=== PATIENT | female | born 1955 | race Caucasian/White ===

== ENCOUNTER 2019-07-30 16:22 | Emergency (ER) | payer MEDICARE, SELFPAY ==
[2019-07-30 16:35] VITALS: BP 140/82; PULSE 110; RESP 16; TEMP 37.6; O2SAT 96
--- NOTE | 2019-07-30 17:12 | ED.GENADULT ---
HPI - General Adult General Chief complaint: Upper Respiratory Infection Stated complaint: Congestion/Cough/left eye watery History of Present Illness HPI narrative: Patient is a 63-year-old female presents to urgent care via POV for evaluation of allergies that began at approximately 2 PM this afternoon. She reports watery eyes and rhinorrhea. Denies taking OTC meds for symptoms symptoms improve when laying flat. Denies aggravating factors. Denies fever, chills, sweats, malaise, change in appetite, poor p.o. intake, recent weight loss, severe persistent headache, LOC, dizziness, lymphadenopathy, vision changes, ear pain/drainage, nasal congestion, sinus pain, sinus pressure, difficulty swallowing, hoarseness, sore throat, abdominal pain, nausea, vomiting, diarrhea, cough, shortness of breath, chest pain, heart palpitations/murmurs. Related Data Home Medications Medication Instructions Recorded Confirmed levothyroxine 137 mcg PO DAILY 07/30/19 07/30/19 metoprolol tartrate [Lopressor] 25 mg PO DAILY 07/30/19 07/30/19 Allergies Allergy/AdvReac Type Severity Reaction Status Date / Time codeine Allergy Unknown Swelling Verified 07/30/19 16:51 ibuprofen Allergy Unknown Swelling Verified 07/30/19 16:51 morphine Allergy Unknown Unknown Verified 07/30/19 16:51 acetaminophen [From Tylenol] Allergy Swelling Verified 07/30/19 16:51 Review of Systems Review of Systems: Narrative: All other systems reviewed and are negative PMFSH Family History Family History Father Family history of chronic obstructive pulmonary disease Sibling Family history of throat cancer Social History Social History Smoking status: Former smoker Smoking end date: 05/13/04 Alcohol intake: current Gender identity (if verbalized by the patient): Female Comments I have reviewed and agree with the patient's past medical, surgical, social, and family hx as documented by the RN. There is no relevant family history pertinent to the presenting complaint. Exam Narrative: Exam Narrative: GENERAL: Well-appearing, well-nourished, and in no acute distress. HEAD: Normocephalic, atraumatic. No sinus tenderness or facial swelling appreciated EYES: PERRLA and EOMI. No evidence of erythema, swelling, or drainage. ENT: Bilateral external ears and ear canals normal. Bilateral TMs are normal.No TM perforation. Nares clear, no epistaxis. Scant amount of rhinorrhea noted to bilateral naris. Bilateral turbinates without erythema/ swelling. Mucous membranes moist and pink. Uvula is midline without erythema and swelling. No evidence of petechial rash, cobblestoning, lesions, ulcers, erythema, swelling, exudates, peritonsillar abscess, tenting, or drooling. Breath odor and voice normal. NECK: Supple. No Lymphadenopathy or nuchal rigidity appreciated. CHEST: Bilateral lung romero are clear to auscultation. No respiratory distress. No evidence of cough or pleuritic cp upon examination. HEART: Regular rate and rhythm. No murmur, gallop, or rub heard. EXTREMITIES: Normal range of motion. No edema. SKIN: Warm, dry, no rash. NEURO: No focal deficits. Alert and oriented x3. Course Vital Signs Vital signs: Vital Signs Temperature 99.7 F H 07/30/19 16:35 Pulse Rate 110 H 07/30/19 16:35 Respiratory Rate 16 07/30/19 16:35 Blood Pressure 140/82 07/30/19 16:35 Pulse Oximetry 96 07/30/19 16:35 Temperature 99.7 F H 07/30/19 16:35 Pulse Rate 110 H 07/30/19 16:35 Respiratory Rate 16 07/30/19 16:35 Blood Pressure 140/82 07/30/19 16:35 Pulse Oximetry 96 07/30/19 16:35 Medical Decision Making Differential Diagnosis Differential Diagnosis: Allergic rhinitis, ABRS, acute viral sinusitis, strep pharyngitis, nasopharyngitis, bronchitis, pneumonia, AOM, otitis externa, viral URI, influenza Vital Signs Vital Signs: Vital
== END 2019-07-30 17:18 | disposition home or self-care (01) ==
PROVIDERS: Emergency Provider Nurse Practitioner Family; PCP Emergency Medicine
DX: J30.9 Allergic rhinitis, unspecified (principal); Z87.891 Personal history of nicotine dependence
CPT/HCPCS: 99211; G0463

== ENCOUNTER 2019-12-14 18:57 | Emergency (ER) | payer MEDICARE, SELFPAY ==
--- NOTE | ~2019-12-14 | XR_ITS ---
EXAMINATION: XR chest 1V portable EXAM DATE: 12/14/2019 19:48 INDICATION: Intermittent cough for 3 days. Nausea and vomiting. TECHNIQUE: Portable AP frontal chest x-ray was obtained. Comparison is made to prior examination from 10/17/2018. FINDINGS: There has been interval development of severely elevated left hemidiaphragm, could indicate hemidiaphragm paralysis. Consider pulmonary consult, follow-up nonemergent sniff test. There is paula cent atelectasis. The lungs are otherwise clear. There are no pleural effusions. The The cardiomedi astinal silhouette is prominent but magnified on this AP technique. There is no pneumothorax suspe cted. The bones and soft tissues are unremarkable. IMPRESSION: 1. Interval development of severely elevated left hemidiaphragm, possible paralysis. Consider pulmon symone consult, follow-up nonemergent sniff test. 2. No acute cardiopulmonary findings. Reviewed, dictated and finalized at location A. IMPRESSION: 1. Interval development of severely elevated left hemidiaphragm, possible paral ysis. Consider pulmonary consult, follow-up nonemergent sniff test. 2. No acute cardiopulmonary findings.
[2019-12-14 19:11] VITALS: BP 132/70; PULSE 90; RESP 14; TEMP 37.2; O2SAT 96
[2019-12-14 20:06] LABS: Basophils Percent Auto 0.5 % (0.2-1.2); Eosinophils Absolute Auto 0.1 K/mm3 (0-0.3); Eosinophils Percent Auto 1.5 % (0-4.4); Hematocrit 44.2 % (37.0-47.0); Hemoglobin 14.7 g/dL (12.0-15.0); Immature Granulocyte Absolute 0.01 K/mm3 (0.00-0.031); Immature Granulocyte Percent A 0.2 % (0-0.5); Lymphocytes Absolute Auto 1.77 K/mm3 (0.9-3.2); Lymphocytes Percent Auto 43.2 % (18.3-44.2); Mean Corpuscular HGB Conc 33.3 g/dl (32-36); Mean Corpuscular Hemoglobin 30.5 pg (26-34); Mean Corpuscular Volume 91.7 fl (80-100); Mean Platelet Volume 10.5 fl (7.4-10.4); Monocytes Absolute Auto 0.7 K/mm3 (0.1-0.6); Neutrophils Absolute Auto 1.5 K/mm3 (1.3-6.7); Neutrophils Percent Auto 36.6 % (45.5-73.1); Platelet Count Result 217 k/mm3 (150-375); Red Blood Count 4.82 M/mm3 (4.2-5.4); Red Cell Distribution Width 13.3 % (11.5-14.5); White Blood Count 4.1 K/mm3 (4.5-10.0)
[2019-12-14 20:18] LABS: Alanine Aminotransferase 13 U/L (4-35); Albumin Level 4.1 g/dL (3.5-5.1); Alkaline Phosphatase 60 U/L (38-126); Anion Gap 8.8 mmol/L (7-16); Aspartate Amino Transferase 25 U/L (14-36); Bilirubin,Total 0.4 mg/dL (0.2-1.3); Blood Urea Nitrogen 12 mg/dL (7-17); Calcium 8.5 mg/dL (8.4-10.2); Carbon Dioxide 29 mmol/L (22-30); Chloride 103 mmol/L (98-107); Estimated CRCL calculation 93 ml/min; Estimated Glomerular Filt Rate > 60; Glucose 94 mg/dL (65-105); Lipase 125 U/L (23-300); Potassium 3.8 mmol/L (3.4-5.0); Sodium 137 mmol/L (137-145)
[2019-12-14 20:24] LABS: Add Urine Microscopic? YES; Appearance Urine Cloudy (Clear); Bacteria Urine Trace /hpf; Bilirubin Urine Negative (Negative); Blood Urine 1+ (Negative); Color Urine Yellow (Yellow); Glucose Urine UA Negative (Negative); Ketones Urine Negative (Negative); Leukocyte Esterase Ur 2+ LEU/UL (Negative); Mucus Urine Heavy /lpf; Nitrate Urine Negative (Negative); Protein Urine 1+ mg/dL (Negative); RBC Urine 21-50 /hpf (0-2); Squamous Epithelial Cell Urine Many /hpf (Few); WBC Urine 16-20 /hpf
--- NOTE | 2019-12-14 20:52 | ED.NAVMDI ---
HPI - Nausea/Vomiting/Diarrhea General Chief complaint: Nausea/Vomiting/Diarrhea Stated complaint: N/V DIZZINESS, PMD REQUESTS TEST FOR COVID AND FLU Time Seen by Provider: 12/14/19 19:20 Source: patient Mode of arrival: ambulatory Limitations: no limitations History of Present Illness HPI Narrative: Patient presents for evaluation 4-5 episodes of vomiting mild nausea and intermittent occasional dry cough that began on Saturday. 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 Patient denies abdominal pain or diarrhea. Patient states that she had a normal bowel movement over the weekend without any blood or mucus. Patient denies any blood in her vomit. Patient denies any urinary symptoms. Patient denies past abdominal issues or any known food or drinks that could have caused her symptoms. Related Data Home Medications Medication Instructions Recorded Confirmed levothyroxine 137 mcg PO DAILY 07/30/19 07/30/19 metoprolol tartrate [Lopressor] 25 mg PO DAILY 07/30/19 07/30/19 Allergies Allergy/AdvReac Type Severity Reaction Status Date / Time codeine Allergy Unknown Swelling Verified 07/30/19 16:51 ibuprofen Allergy Unknown Swelling Verified 07/30/19 16:51 morphine Allergy Unknown Unknown Verified 07/30/19 16:51 acetaminophen [From Tylenol] Allergy Swelling Verified 07/30/19 16:51 Review of Systems Review of Systems: Narrative: CONSTITUTIONAL: Denies fever, chills, or sweats. EYES: Denies visual changes, redness, or discharge. ENT: Denies sore throat CARDIOVASCULAR: Denies chest pain, palpitations, or edema. RESPIRATORY: Reports intermittent cough denies dyspnea. GASTROINTESTINAL: Reports nausea vomiting denies abdominal pain, or diarrhea. GENITOURINARY: Denies dysuria or hematuria. SKIN: Denies rash or itching. MUSCULOSKELETAL: Denies back pain, joint pain, or myalgia. NEUROLOGIC: Denies headache, numbness, dizziness, or weakness. PMFSH Social History Social History Smoking status: Former smoker Smoking end date: 05/13/04 Alcohol intake: current Gender identity (if verbalized by the patient): Female Exam Narrative: Exam Narrative: GENERAL: Well-appearing, well-nourished, and in no acute distress or discomfort. HEAD: Normocephalic, atraumatic. EYES: PERRLA and EOMI. ENT: Nares clear, no rhinorrhea or epistaxis. Mucous membranes moist. Oropharynx without tonsillar hypertrophy exudate or other lesions. Bilateral TMs pearly patino nonbulging NECK: Supple. No adenopathy or masses. CHEST: Clear to auscultation. No respiratory distress. No wheezes rales or rhonchi HEART: Regular rate and rhythm. ABDOMEN: Soft, nontender with palpation, nondistended, normal active bowel sounds. EXTREMITIES: Normal range of motion. No edema. SKIN: Warm, dry, no rash. NEURO: No focal deficits. Alert and oriented x3. PSYCH: Normal mood and affect. Course Vital Signs Vital signs: Vital Signs Temperature 98.9 F 12/14/19 19:11 Pulse Rate 90 12/14/19 19:11 Respiratory Rate 14 12/14/19 19:11 Blood Pressure 132/70 12/14/19 19:11 Pulse Oximetry 96 12/14/19 19:11 Temperature 98.9 F 12/14/19 19:11 Pulse Rate 76 12/14/19 21:34 Respiratory Rate 18 12/14/19 21:34 Blood Pressure 132/78 12/14/19 21:34 Pulse Oximetry 99 12/14/19 21:34 MDM - Nausea/Vomiting/Diarrhea MDM Narrative Medical decision making narrative: Patient is in no acute distress or discomfort during her ER visit. Her vital signs have been stable. 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 Patient will be treated for UTI and instructed to follow-up with her primary care for reevaluation as well as to further evaluate incidental chest x-ray finding of possibly paralyzed and elevated hemidiaphragm. Patient is in agreement with discharge and denies any questions or concerns at this time. Differential Diagnosis
[2019-12-14 21:34] VITALS: BP 132/78; PULSE 76; RESP 18; O2SAT 99
[2019-12-15 15:08] LABS: SARS-CoV-2 RNA PCR Positive
== END 2019-12-14 21:36 | disposition home or self-care (01) ==
PROVIDERS: Physician Assistant; Emergency Provider Emergency Medicine; PCP Emergency Medicine
DX: U07.1 COVID-19 (principal); N39.0 Urinary tract infection, site not specified; Z87.891 Personal history of nicotine dependence; R91.8 Other nonspecific abnormal finding of lung field
CPT/HCPCS: 36415; 71045; 80053; 81001; 83690; 85025; 87086; 87635; 99283; C9803; U0003

== ENCOUNTER 2020-05-03 09:56 | Outpatient (CLI) | payer MEDICARE, SELFPAY ==
--- NOTE | ~2020-05-03 | CT_ITS ---
EXAMINATION: CT chest wo con EXAM DATE: 05/03/2020 10:17 INDICATION: J98.6 - Disorders of diaphragm. Left-sided chest pain. TECHNIQUE: Spiral CT of the chest without contrast. Axial, coronal and sagittal images were reviewe d. Coronal maximum intensity pixel images of chest reviewed. The dose-length product (DLP) for this examination was 255.81 mGy-cm. The exposure was tailored according to patient size (auto mA exposur e control), and iterative reconstruction (ASIR) was used as additional dose reduction technique. Edmundo elation is made to chest x-ray 12/14/2019. FINDINGS: There is elevated left hemidiaphragm with multisegmental left lower lobe atelectasis. This could indicate hemidiaphragm paralysis. Subsegmental lingular, right middle lobe atelectasis. No ev idence of acute infection. Tracheobronchial tree is patent. There is no mediastinal, hilar or axil yaima lymphadenopathy. There is no pneumothorax. Heart normal in size. No evidence of coronary a rterial calcification. There are 3 exophytic left renal, probably cysts There is mild thoracic spon dylosis without osteoblastic or osteolytic lesions identified. IMPRESSION: Chronic left hemidiaphragm elevation, adjacent atelectasis. Possible TX paralysis. Consid er sniff test. Reviewed, dictated and finalized at location B. 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 Possibl e TX paralysis. Consider sniff test.
== END 2020-05-03 09:57 | disposition home or self-care (01) ==
PROVIDERS: PCP Emergency Medicine; Visit Provider Internal Medicine Critical Care Medicine
DX: J98.6 Disorders of diaphragm (principal); R91.8 Other nonspecific abnormal finding of lung field; J98.11 Atelectasis
CPT/HCPCS: 71250

== ENCOUNTER 2020-07-29 07:54 | Outpatient (CLI) | payer MEDICARE, MEDICAID, SELFPAY ==
[2020-07-29 08:47] LABS: Alveolar/Arterial O2 Gradient 17.1 mmHg; Base Excess ABG 0.7 mEq/l (+/-2.0); Fractional Inspired Oxygen 21 %; HCO3 ABG 25.2 mEq/l (22.0-26.0); Oxygen Content ABG 19.7 %vol (16.0-22.0); Oxygen Saturation ABG 96.5 % (95.0-100.0); Oxyhemoglobin 95.8 % THb (90.0-100.0); PO2 ABG 84.7 mmHg (80.0-100.0); PO2 FiO2 Ratio Arterial Blood 4.03 %; Total Hemoglobin 14.6 g/dL (12.0-18.0); pH ABG 7.417 (7.350-7.450)
[2020-07-29 08:48] LABS: Device ROOM AIR; Modified Allen's Test Pass; Site Drawn RIGHT RADIAL
--- NOTE | 2020-07-29 15:14 | WPDSIXMINUTE ---
Six Minute Walk This is a 6 minutes walk test. The test was performed and interpreted in accordance with the 2014 ERS/ATS task force guidelines. Findings: The patient's resting room air oxygen saturation measured by pulse oximetry was 94% and her heart rate was 72 bpm. Patient ambulated for 335 meters and oxygen saturation remained 92% to 96%. Heart rate at the end of the study was 99 bpm. There are no prior studies for comparison.
--- NOTE | 2020-07-29 15:15 | WPDPFTINT ---
PFT Interpretation This is a pulmonary function test with pre and post-bronchodilator spirometry, plethysmography,diffusing capacity, maximal inspiratory and expiratory force and arterial blood gas. The test was performed and results interpreted in accordance with the 2019 and 2005 ATS/ERS Task Force guidelines respectively using the Global Lung Function Initiative-2012 reference equations. Patient demonstrated good effort and cooperation. Reproducibility criteria were met. The quality of the pre bronchodilator spirometry maneuver was Grade A and post bronchodilator spirometry maneuver was Grade A. Findings: Spirometry: There is decreased maximal expiratory airflow at all lung volumes with a mildly concave expiratory flow tracing. The pre bronchodilator FVC is 2.21 L, 74% predicted. The pre bronchodilator FEV1 is 1.57 L, 67% predicted. The FEV1: FVC ratio 71%. The post bronchodilator FVC is 2.25 L, representing a 2% increase. The post bronchodilator FEV1 is 1.65 L, representing a 5% increase. Plethysmography: The total lung capacity is 3.33 L, 66% predicted. Functional residual capacity is 1.42 L, 42 44% predicted. The residual volume is 1.12 L, 52% predicted. Diffusing capacity: The absolute diffusion capacity is 17.1, 75% predicted. The diffusing capacity corrected for alveolar volume is 4.91, 118% predicted. Respiratory muscle force: The maximal inspiratory pressure is 44 cm H2O, 62% predicted. The maximal expiratory pressure is 84 cm H2O, 62% predicted ABG: The resting room air arterial blood gas shows a pH of 7.42, a PaCO2 of 40.0, a PaO2 of 84.7. Impression: There is a combined obstructive and restrictive ventilatory abnormality. There are no guidelines to assign the severity of obstruction and restriction with a combined abnormality. In my opinion, given the mildly concave expiratory flow tracing and low normal FEV1: FVC ratio and mild restrictive abnormality, I would state there is a mild obstructive abnormality and a mild restrictive abnormality resulting in a moderately decreased FEV1. There is no significant improvement after inhaling a single dose of albuterol. The diffusing capacity is normal. The maximal inspiratory pressure and maximal expiratory pressure values are both below the lower limit of normal which is defined as the 5th percentile of predicted and indicating the presence of respiratory muscle weakness. Clinical correlation is recommended. The arterial blood gas is normal. There are no prior studies for comparison
== END 2020-07-29 07:55 | disposition home or self-care (01) ==
PROVIDERS: PCP Emergency Medicine; Visit Provider Internal Medicine Critical Care Medicine
DX: I25.10 Atherosclerotic heart disease of native coronary artery without angina pectoris (principal); R06.02 Shortness of breath; J98.6 Disorders of diaphragm; R94.2 Abnormal results of pulmonary function studies
CPT/HCPCS: 36600; 82805; 94060; 94200; 94618; 94726; 94729

== ENCOUNTER 2020-08-02 11:05 | Outpatient (CLI) | payer MEDICARE, MEDICAID, SELFPAY ==
--- NOTE | ~2020-08-02 | US_ITS ---
EXAMINATION: US thyroid EXAM DATE: 08/02/2020 11:25 INDICATION: Hypothyroidism. TECHNIQUE: Multiple grayscale and Doppler images of the thyroid were obtained (by a technologist who performed the scan) and subsequently reviewed. Individual nodules and recommendations may be reporte d in accordance with TI-RADS system as designated by the 2017 ACR White Paper TI-RADS committee. Comp arison is made to prior examination from 09/04/2017. FINDINGS: The right thyroid lobe measures 5.7 x 2.7 x 1.9 cm, the left measuring 4.9 x 2.1 x 1.8 cm, mild to mo derately enlarged. There is diffusely heterogeneous thyroid echogenicity and also hypervascularity, c ould indicate Kirt's thyroiditis. Previous exam demonstrated several subcentimeter hyperechoic regions within the heterogeneous thyroid parenchyma, but these are not specifically identified on today's examination. IMPRESSION: Enlarged heterogeneous hypervascular thyroid. Clinical correlation. Reviewed, dictated and finalized at location A.
== END 2020-08-02 11:06 | disposition home or self-care (01) ==
PROVIDERS: PCP Emergency Medicine; Visit Provider Emergency Medicine
DX: E03.9 Hypothyroidism, unspecified (principal)
CPT/HCPCS: 76536

== ENCOUNTER 2020-08-30 10:18 | Outpatient (CLI) | payer MEDICARE, MEDICAID, SELFPAY ==
--- NOTE | ~2020-08-30 | XR_ITS ---
XR sniff test with CXR2V DATE: 08/30/2020 10:52 INDICATION: Elevated left diaphragm TECHNIQUE: Fluoroscopy was performed during provocative measures including significant and inspiratio n and expiration. COMPARISON: None FINDINGS: There is normal direction of excursion of both leaves of the diaphragm although there is di minished extent of excursion of the elevated left diaphragm compared to the right. IMPRESSION: Elevated left leaf of diaphragm. No evidence of perivascular motion Reviewed, dictated and finalized at Location A. Reviewed, dictated and finalized at location A.
== END 2020-08-30 10:19 | disposition home or self-care (01) ==
PROVIDERS: PCP Emergency Medicine; Visit Provider Nurse Practitioner Family
DX: J98.6 Disorders of diaphragm (principal)
CPT/HCPCS: 71046; 76000

== ENCOUNTER 2021-03-11 10:54 | Emergency (ER) | payer MEDICARE, MEDICAID, SELFPAY ==
--- NOTE | ~2021-03-11 | XR_ITS ---
EXAMINATION: XR chest 2V EXAM DATE: 03/11/2021 11:16 INDICATION: Cough for 4 days. TECHNIQUE: Frontal and lateral projections of the chest obtained and reviewed. Comparison is made to prior examination from 08/30/2020, 12/14/2019. FINDINGS: Chronic left hemidiaphragm elevation suspicious for paralysis. This was not present on x-ra y from 10/17/2018, but was present on exam from 12/14/2019. Some adjacent segmental atelectasis. The lung s are otherwise clear. There are no pleural effusions. The cardiomediastinal silhouette is within n ormal limits. There is no pneumothorax suspected. The bones and soft tissues are unremarkable. IMPRESSION: Chronic left hemidiaphragm elevation. Adjacent atelectasis. Reviewed, dictated and finalized at location A.
[2021-03-11 11:01] VITALS: BP 154/77; PULSE 87; RESP 16; TEMP 36.7; O2SAT 98
--- NOTE | 2021-03-11 11:43 | ED.URI ---
HPI - URI/Sore Throat General Chief Complaint: Upper Respiratory Infection Stated Complaint: Cough Source: patient and RN notes reviewed Limitations: no limitations History of Present Illness HPI Narrative: The patient, an ex-smoker/occasional drinker with history of Covid disease, presents with cough. Patient states she has been seen by pulm [Dr. Guevara] for history of Covid pneumonia c/b diaphragmatic paralysis 2019 . It was confirmed by CT scan and PFTs showing mild obstructive and restrictive defects with minimal improvement with inhaler. She now has a shorter half week history of slightly productive cough, myalgias with headache and occasional wheezing. No fever, CP, calf pain/edema; no loss of taste or smell, shortness of breath. Symptoms are mild, slightly worse supine/sleeping, unrelieved with prescribed meds. She reports having access to nebulizer; and , strong NSAID and codeine allergies Related Data Home Medications Medication Instructions Recorded Confirmed levothyroxine 137 mcg PO DAILY 07/30/19 03/11/21 metoprolol tartrate [Lopressor] 25 mg PO DAILY 07/30/19 03/11/21 ergocalciferol (vitamin D2) 50,000 50,000 unit PO DAILY 04/26/20 03/11/21 unit tablet simvastatin 40 mg tablet 40 mg PO DAILY 04/26/20 03/11/21 Allergies Allergy/AdvReac Type Severity Reaction Status Date / Time codeine Allergy Unknown Swelling Verified 03/11/21 11:14 ibuprofen Allergy Unknown Swelling Verified 03/11/21 11:14 morphine Allergy Unknown Unknown Verified 03/11/21 11:14 acetaminophen [From Tylenol] Allergy Swelling Verified 03/11/21 11:14 Review of Systems Review of Systems: General/Constitutional: No weight loss,fever Eyes: N0: Redness,discharge Ears/Nose/Throat: No: Epistaxis,ear discharge Respiratory: Denies: Hemoptysis Gastrointestinal: No Vomiting, Bleeding-rectal Skin: No Lumps, eruption Neurologic: No Focal Weakness,Sz Hematologic: Denies: Petechiae/Purpura Psychiatric: No: Suicida ideationl All Other Systems: Reviewed and Negative [facility] Past Medical History Medical History Coronary artery disease Diaphragm paralysis Family History Family History Father Family history of chronic obstructive pulmonary disease Sibling Family history of throat cancer Social History Social History Smoking status: Former smoker Smoking end date: 05/13/04 Alcohol intake: current Gender identity (if verbalized by the patient): Female Comments At time of signature, agree with nursing past medical, surgical, social and family history. There is no relevant family history pertinent to the presenting complaint Exam Narrative: General Appearance: Well appearing, Well nourished EYE: PERRLA, Conjunctiva clear Ears: Auditory canal normal, TM normal Nose: Rhinorrhea, Mucousal erythema Mouth/Throat: MM moist, Uvula midline, Pharyngeal erythema Neck: Supple, No adenopathy Respiratory: No respiratory distress, increased AP diameter, decreased BS left >right,eswp at bases Cardiovascular: RRR, No JVD Musculoskeletal: Non tender, Normal strength Skin: Warm, Dry Neurological: A&O x3, CN II-XII intact Psychiatric: Normal mood, Normal affect Course Course Emergency Course: Films visualized, interpreted by radiologist, agree, chronic ABnormal see report Vital Signs Vital signs: Vital Signs Temperature 98.1 F 03/11/21 11:01 Pulse Rate 87 03/11/21 11:01 Respiratory Rate 16 03/11/21 11:01 Blood Pressure 154/77 H 03/11/21 11:01 Pulse Oximetry 98 03/11/21 11:01 Temperature 98.1 F 03/11/21 11:01 Pulse Rate 87 03/11/21 11:01 Respiratory Rate 16 03/11/21 11:01 Blood Pressure 154/77 H 03/11/21 11:01 Pulse Oximetry 98 03/11/21 11:01 MDM - URI/Sore Throat Lab Data Labs: Lab Results 03/11/21 Range/Units 11:10 POC SARS CoV-2
== END 2021-03-11 12:10 | disposition home or self-care (01) ==
PROVIDERS: Emergency Provider Emergency Medicine; PCP Emergency Medicine
DX: R05.9 Cough, unspecified (principal); R94.31 Abnormal electrocardiogram [ECG] [EKG]; Z20.822 Contact with and (suspected) exposure to COVID-19; Z87.891 Personal history of nicotine dependence; I25.10 Atherosclerotic heart disease of native coronary artery without angina pectoris; Z86.16 Personal history of COVID-19
CPT/HCPCS: 71046; 87426; 99213; C9803; G0463

== ENCOUNTER → 2022-03-26 11:01 | Outpatient (CLI) | payer MEDICARE, MEDICAID, SELFPAY ==
--- NOTE | ~2022-03-26 | XR_ITS ---
XR chest 2V DATE: 03/26/2022 11:25 INDICATION: Nonproductive cough for 2 days. Nonsmoker. TECHNIQUE: 2 views COMPARISON: 03/11/2021 2 view chest FINDINGS: There is chronic prominent elevation of left diaphragm. There is associated mild atelectasi s at the left lung base. The lungs otherwise appear clear. Heart size appears borderline or enlarged. No hilar or mediastinal enlargement is evident. No pleural effusion or pulmonary vascular congestion or pneumothorax is detected. Osteopenia. IMPRESSION: Chronic prominent elevation of left diaphragm with minimal atelectasis at left lung base Borderline or increased heart size No significant change since 03/11/2021 Reviewed, dictated and finalized at location A. [employer]NAL[employer] IMPRESSION: Chronic prominent elevation of left diaphragm with minimal atelecta sis at left lung base Borderline or increased heart size No significant change since 03/11/2021
== END ==
PROVIDERS: PCP Emergency Medicine; Visit Provider Emergency Medicine
DX: R05.9 Cough, unspecified (principal); R91.8 Other nonspecific abnormal finding of lung field
CPT/HCPCS: 71046

== ENCOUNTER 2022-03-31 21:01 | Emergency (ER) | payer MEDICARE, MEDICAID, SELFPAY ==
--- NOTE | ~2022-03-31 | XR_ITS ---
EXAMINATION: XR chest 2V DATE: 03/31/2022 21:32 INDICATION: Cough and left-sided chest pain. TECHNIQUE: PA and lateral views of the chest were obtained. COMPARISON: Chest radiograph dated 03/26/2022 FINDINGS: Elevation the left hemidiaphragm. Increased opacities along the left lung base. No pulmonary edema, p leural effusion or pneumothorax. Cardiomegaly. Mild anterior wedging of several lower thoracic verteb ral bodies. IMPRESSION: 1. Interval increase in opacities along the elevated left hemidiaphragm which could represent atelect asis and/or pneumonia. Reviewed, dictated and finalized at location A. ESS CONSULTANT IMPRESSION: 1. Interval increase in opacities along the elevated left hemidiaphragm which c ould represent atelectasis and/or pneumonia.
--- NOTE | 2022-03-31 21:20 | ED.URI ---
HPI - URI/Sore Throat General Chief Complaint: Unspecified Stated Complaint: Possible fractured rib Time Seen by Provider: 03/31/22 21:02 History of Present Illness HPI Narrative: 66-year-old female history of coronary artery disease presents emergency room for complaints of left-sided chest wall pain. Patient states that she has been coughing for a week, was seen by her PCP and completed a course of Z-Beto. Patient states that she has not shown any improvement with her symptoms. Has been taking [place] cough medicine with no relief. Patient denies shortness of breath, difficulty breathing or chest pain. Patient states I think I broke a rib . Related Data Home Medications Medication Instructions Recorded Confirmed levothyroxine 137 mcg tablet 137 mcg PO DAILY 07/30/19 03/11/21 metoprolol tartrate 50 mg tablet 25 mg PO DAILY 07/30/19 03/11/21 (Lopressor) ergocalciferol (vitamin D2) 50,000 50,000 unit PO DAILY 04/26/20 03/11/21 unit tablet simvastatin 40 mg tablet 40 mg PO DAILY 04/26/20 03/11/21 Allergies Allergy/AdvReac Type Severity Reaction Status Date / Time codeine Allergy Unknown Swelling Verified 05/02/21 12:49 ibuprofen Allergy Unknown Swelling Verified 05/02/21 12:49 morphine Allergy Unknown Unknown Verified 05/02/21 12:49 acetaminophen [From Tylenol] Allergy Swelling Verified 05/02/21 12:49 Review of Systems Review of Systems: CONSTITUTIONAL: Denies fever, chills, or sweats. EYES: Denies visual changes, redness, or discharge. ENT: Denies rhinorrhea, congestion, sore throat, or otalgia. CARDIOVASCULAR: Denies chest pain, palpitations, or edema. RESPIRATORY: Reports cough GASTROINTESTINAL: Denies abdominal pain, nausea, vomiting, or diarrhea. GENITOURINARY: Denies dysuria or hematuria. SKIN: Denies rash or itching. MUSCULOSKELETAL: Denies back pain, joint pain, or myalgia. NEUROLOGIC: Denies headache, numbness, dizziness, or weakness. PSYCHIATRIC: Denies anxiety or depression. [facility] Past Medical History Medical History Coronary artery disease Diaphragm paralysis Family History Family History Father Family history of chronic obstructive pulmonary disease Sibling Family history of throat cancer Social History Social History Smoking status: Former smoker (quit 2004) Smoking end date: 05/13/04 Alcohol intake: current Gender identity (if verbalized by the patient): Female Exam Narrative: GENERAL: Well-appearing, well-nourished, no physical limitations, and in no acute distress. HEAD: Normocephalic, atraumatic. EYES: Conjunctivae normal, PERRLA and EOMI. ENT: External nose normal, Nares clear, no rhinorrhea or epistaxis. Mucous membranes moist. Oropharynx without tonsillar hypertrophy exudate or other lesions. External ears normal, bilateral TMs normal bilaterally NECK: Supple. No adenopathy or masses. CHEST: Clear to auscultation. No respiratory distress. No wheezes rales or rhonchi. Tenderness to the left lateral and left anterior chest wall HEART: Regular rate and rhythm. No murmur heard. Normal peripheral pulses. BACK: No CVA tenderness; No cervical/thoracic/lumbar tenderness, step-offs, bony abnormality; FROM EXTREMITIES: Normal range of motion. No edema. No clubbing or cyanosis SKIN: Warm, dry, no rash. No noted wounds NEURO: No focal deficits. Alert and oriented x3. MAEW. CN's II-XI intact bilaterally, normal gait PSYCH: Cooperative. Normal mood and affect. MDM - URI/Sore Throat Imaging Data My impression: CXR: LLL atelectasis, No cardiopulmonary abnormality, No rib fracture Discharge Plan Discharge Clinical Impression: Cough, Acute chest wall pain Patient Disposition: Home, Self-Care Condition: Stable Instructions: Antibiotic Form, Upper Respiratory Infection (ED), Viral Syndrome (ED), Chest Wall
[2022-03-31 22:47] VITALS: BP 158/84; PULSE 94; RESP 16; O2SAT 97
== END 2022-03-31 22:50 | disposition home or self-care (01) ==
PROVIDERS: Emergency Provider Nurse Practitioner Family; PCP Emergency Medicine
DX: R07.89 Other chest pain (principal); R05.9 Cough, unspecified; J98.6 Disorders of diaphragm; I25.10 Atherosclerotic heart disease of native coronary artery without angina pectoris; Z87.891 Personal history of nicotine dependence
CPT/HCPCS: 71046; 99283

== ENCOUNTER → 2022-04-25 10:46 | Outpatient (CLI) | payer MEDICARE, MEDICAID, SELFPAY ==
--- NOTE | ~2022-04-25 | XR_ITS ---
Clinical Indication: Cough, smoking history PA and lateral views of the chest: Comparison: 03/31/2022 Findings: The lungs are clear, without evidence of focal consolidation or pleural effusion. Stable el evation left hemidiaphragm. Cardiomediastinal silhouette is within normal limits. Bones and soft tiss ues are unremarkable. Impression: No acute abnormality. Stable elevation left hemidiaphragm. Reviewed, dictated and finalized at location [] T RAIL OPERATOR Impression: No acute abnormality. Stable elevation left hemidiaphragm.
== END ==
PROVIDERS: PCP Emergency Medicine; Visit Provider Emergency Medicine
DX: R05.9 Cough, unspecified (principal); J18.9 Pneumonia, unspecified organism
CPT/HCPCS: 71046

== ENCOUNTER → 2022-06-14 13:23 | Outpatient (CLI) | payer MEDICARE, MEDICAID, SELFPAY ==
--- NOTE | ~2022-06-14 | XR_ITS ---
EXAMINATION: XR chest 2V DATE: 06/14/2022 13:41 INDICATION: Cough TECHNIQUE: PA and lateral views of the chest are obtained. COMPARISON: 04/25/2020 FINDINGS: There is unchanged elevation of the left hemidiaphragm with passive atelectasis in the left lung base. No acute airspace opacities are identified. No pleural effusion or pneumothorax. The card iomediastinal silhouette is normal. There is moderate thoracic spondylosis. IMPRESSION: 1. No acute cardiopulmonary abnormality. Reviewed, dictated and finalized at location L. E DELIVERY SERVICE DRIVER
== END ==
PROVIDERS: PCP Emergency Medicine; Visit Provider Emergency Medicine
DX: R05.9 Cough, unspecified (principal)
CPT/HCPCS: 71046

== ENCOUNTER 2023-12-31 10:00 | Outpatient (RCR) | payer MEDICARE, MEDICAID, SELFPAY ==
--- NOTE | 2023-11-25 15:44 | OPREHPOC ---
Outpatient Therapy Plan of Care This is a Multidisciplinary Plan of Care that may contain components documented by all disciplines (PT, OT, and ST.) PT Problem 1 PT Problem #1 Knowledge Deficit PT Goal [address] [place] with HEP Target Visit 4 PT Goal 2 Goal Report no pain with lifting of 5# to shoulder level Target Visit 8 PT Problem 2 PT Problem #2 Impaired Range of Motion PT Goal 1 Goal Achieve 165 degrees of active R shoulder flexion for improved functional reach Target Visit 8 PT Goal 2 Goal Achieve 80 degrees of R shoulder external rotation for improved self care Target Visit 8 PT Problem 3 PT Problem #3 Impaired Strength PT Goal 1 Goal Improve R shoulder flexion to 4+/5 to improve object lifting and ADL performance Target Visit 8 PT Goal 2 Goal Improve R shoulder external rotation strength to 4 +/5 to improve shoulder stability and reach Target Visit 8
--- NOTE | 2023-11-25 15:44 | PTOPEVAL1 ---
Assessment and note entered by Noel Silver, PT Evaluation Information Assessment Status Evaluation ICD-10 Condition Codes (PT) M25.511 Onset 10/15/23 Subjective Information Reports that she fell at work resulting in dislocation of her shoulder. Reports that she is still having a lot of pain and has difficulty with raising her arm up a lot of time. She has been sleeping in her recliner since the incident and that is the only place that she is comfortable. She is right handed. She will occasionally have pain/numbness/and tingling in her fingertips but is short lived. Denies any neck pain or headaches. Reported Pain Level Pain Score 2: Self Report Assessment PT Clinical Summary Patient presents with signs and symptoms of shoulder weakness, loss of functional ROM, and increased pain with self care. Patient will benefit form skilled therapy to address these deficits for gross improvement of home ADLs and pain free range equivalent to non involved non dominant side. Plan of Care Interventions Hot Pack/Cold Pack,Manual Therapy,Neuro Re- education,Therapeutic Activities,Therapeutic Exercise PT Services Indicated Yes Treatment Frequency and 2x/week for 8 visits Duration These treatments will address the objective and functional deficits as defined above. The patient will be advanced safely and appropriately in order for the patient to progress towards his/her prior level of function. Additional exercises will be introduced and as well as a comprehensive home exercise program upon discharge, if needed, ?to ensure carryover of functional gains achieved in the clinic. This treatment plan has been reviewed and agreement upon by the patient.
--- NOTE | 2023-12-17 10:19 | PCPTNOTE ---
Patient was a No Show/No Call for today's appointment
[2023-12-31 09:55] VITALS: BP_SYST 140
--- NOTE | 2023-12-31 10:46 | PTOPDC ---
Assessment and note entered by Melissa Acevedo, PT Discharge Report Assessment Status Discharge ICD-10 Condition Codes (PT) M25.511 Onset 10/15/23 Subjective Information shoulder is better- pain is less and using it more doing the exercises; is not able to do heavy things yet, son helps with the heavy lifting; is doing everything else; have returned to work-- doing OK, but not helping move pt; sleep in the recliner or the bed--where ever she falls asleep; ready to be finished with therapy; Reported Pain Level Pain Score Self Report Additional Pain Score Comments pain range in the past week of 0-4/10; decrease pain: hot shower, muscle cream, heating pad, take aleve PRN increase pain: picking something up; is able to lie on her R shoulder for sleeping; Assessment PT Clinical Summary Selina has received 6 PT sessions. Compared to the initial evaluation: increase in R shoulder ROM and strength, with increased activity level and return to work; Self assessment Quick DASH from 32 to 11% limitation in activity level; pain decreased from 2-9/10 to 0- 4/10; education completed for HEP and pain control The goals were achieved. Discharge PT services. She is to continue with her HEP. Plan of Care PT Services Indicated No
== END 2023-12-31 13:55 | disposition home or self-care (01) ==
LOC: ANHPT 10:00
PROVIDERS: PCP Emergency Medicine; Visit Provider Physician Assistant
DX: M25.511 Pain in right shoulder (principal)
CPT/HCPCS: 97110; 97140; 97161; 97530

== ENCOUNTER 2024-10-28 08:22 | Outpatient (CLI) | payer MEDICARE, MEDICAID, SELFPAY ==
--- OUTSIDE RECORDS SUMMARY | 2024-10-27 12:03 | XMS_ITS | Data Portability ---
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 Plan of Treatment Reminders Order Date Submit Date Provider Last Modified By Organization Details Last Modified Time Details Appointments None recorded. Lab None recorded. Referral None recorded. Procedures None recorded. Surgeries None recorded. Imaging None recorded. Medication Orders Toprol XL 25 mg tablet,ex tended release [id number] [employer] [facility] [place], [address], 9 19:32:43 Toprol XL 25 mg tablet,ex tended release [id number] [id number] [employer] [address] [place] [address] [address] [place], [address], 9 19:32:43 Patient TargetsNo targets recorded. Patient Instructions Encounter Date Encounter Id Patient Instructions Last Modified By Organization Details Last Modified Time 12/16/2018 [id number] Scribed by Lizeth marquis Not available 12/16/2018 10:48:08 01/30/2019 [id number] Weight loss, 20 pounds Exercise advised Low cholesterol diet advised Low sodium diet advised. [email or web address] Not available 01/30/2019 11:03:58 scribed by nisha de paz RN; doctor examined and seen patient simutaniously and agreed. [email or web address] Not available 01/30/2019 10:56:02 Reason for Referral None Reported. Results Created Date Observation Date Name Description Value Unit Range Abnormal Flag Note LastModifiedBy Organization Detail LastModifiedTime 01/17/20 19 01/02/2019 iain r monit or No observ ation record ed. [email or web address] Not Available 2018 13:00:18 01/17/20 19 12/15/2018 pk cummings am No observ ation record ed. [email or web address] Not Available 2018 17:28:29 01/28/20 19 01/02/2019 dobut amine myoca rdial perfu patrice study (PROC ) No observ ation record ed. [email or web address] Not Available 2018 12:36:31 Result Notes None recorded. Problems Name Problem SNOMED Code Status Onset Date Resolution Date Notes Provider Name and Address Organization Details Recorded Time Snoring 80595999 Active 2018 Carie Marleyr null, [place] [facility] 9 10:13:24 Nasal congestion 56906046 Active 2018 Carie Marleyr null, [place] [facility] 9 10:13:36 Fatigue 27973812 Active 2018 Carie Marleyr null, [place] - [facility] 9 10:13:41 Gastroesophage al reflux disease 731602636 Active 2018 Carie Marleyr null, [place] - [facility] 9 10:13:53 Nocturia 591797815 Active 2018 Carie Marleyr null, [place] - [facility] 9 10:14:03 Dizziness 630121195 Active 2018 Carie Zacariasehr null, [place] - [facility] 9 10:14:10 Problem Notes None recorded. Procedures Surgical History Date Name Laterality Status Provider Name and Address Organization Details Recorded Time hysterectomy completed Carie Anderson [place] [facility] 12/16/2018 10:16:34 Imaging Results None recorded. Procedure Notes None recorded. Medical Equipment None Reported. Allergies Allergen ID Allergen Name Allergen Category Reaction Reaction Severity Criticality Documentation Date Start Date Code Code System Note Provider Name and Address Organization Details Recorded Time 8683 codeine medicatio n Not available Not available Not available 12/16/2018 2670 RxNorm Carie Marleyr null, [place] - [facility] 9 10:22:17 8684 ibuprofen medicatio n Not available Not available Not available 12/16/2018 5640 RxNorm Carie sorensen, [facility] 9 10:22:28 8685 Motrin medicatio n Not available Not available Not available 12/16/2018 56291 8 RxNorm Carie sorensen, [facility] 9 10:22:45 Medications Name Sig Start Date Stop Date Status Note LastModified by Organization Details LastModified Time amoxicillin 500 mg capsule 12/16 completed Not Available Not Available Not Available levothyroxi ne 137 mcg tablet active Not Available Not Available Not Available azithromyci n 250 mg tablet active Not Available Not Available Not Available metoprolol succinate ER 50 mg tablet,exte nded release 24 hr Take 0.5 tablets twice a day by oral route as directed. 2018 active Not Available Not Available Not Avai lable prednisone 20 mg tablet 12/16 completed Not Available Not Available Not Available simvastatin 40 mg tablet Take 1 mg every day by oral route as directed for 30 days. active Not Available Not Available No t Available levothyroxi ne 125 mcg tablet Take 1 tablet every day by oral route as directed. active Not Available Not Available No t Available nystatin 100,000 unit/gram topical cream Apply 1 applicati on twice a day by topical route as directed. active Not Available Not Available No t Available metoprolol succinate ER 25 mg tablet,exte nded release 24 hr TAKE 1 TABLET BY MOUTH ONCE DAILY active Not Available Not Available No t Available Vitamin D2 1,250 mcg (50,000 unit) capsule 12/16 completed Not Available Not Available Not Available fluticasone propionate 50 mcg/actuati on nasal spray,suspe nsion [place] 1 spray every day by nasal route as directed for 30 days. active Not Available Not Available No t Available naproxen 500 mg tablet 12/16 completed Not Available Not Available Not Available levothyroxi ne 112 mcg tablet 12/16 completed Not Available Not Available Not Available Vitamin D 400 IU QD active Not Available Not Available Not Available ProAir HFA 90 mcg/actuati on aerosol inhaler 12/16 completed Not Available Not Available Not Available Vitamin B12 Hi-Potenc y 50mcg QD active Not Available Not Available No t Available Fluzone Quad (PF) 60 mcg(15 mcgx4)/0.5 mL intramuscul ar syringe 12/16 completed Not Available Not Available Not Available Vitals Date Recorded Body weight Body mass index (BMI) Body height Heart rate Oxygen saturation Oxygen saturation in Arterial blood by Pulse oximetry Systolic blood pressure Diastolic blood pressure Provider Name and Address Organization Details Last Updated DateTime 9 409395. 2 g 39.8 kg/m2 172.72 cm 76 /min 96 % 96 % 142 mm[Hg] 94 mm[Hg] Carie [facility] 9 10:21:51 Date Recorded Body height Body mass index (BMI) Body weight Heart rate Oxygen saturation Oxygen saturation in Arterial blood by Pulse oximetry Systolic blood pressure Diastolic blood pressure Provider Name and Address Organization Details Last Updated DateTime 9 172.72 cm 40.7 kg/m2 550345. 76 g 70 /min 98 % 98 % 152 mm[Hg] 86 mm[Hg] Carie Zacariasehr [facility] 9 10:38:37 Social History Question Answer Notes LastModified by Physicians Formula Details LastModified Time Tobacco Smoking Status Former Smoker 9 yrs old Not Available [facility] 03/15/2020 03:30:41 What Is Your Level Of Caffeine Consumption? Moderate [id number] Information not available 03/15/2020 How Much Tobacco Do You Chew? None [id number] Information not available 03/15/2020 What Type Of Diet Are You Following? REGULAR [id number] Information not available 03/15/2020 Which Illicit Or Recreational Drugs Have You Used? No [id number] Information not available 03/15/2020 Live Alone Or With Others? With Others Information not available 12/16/2018 Marital Status Informatio n not available 12/16/2018 How Many Children Do You Have? 1 [id number] Information not available 03/15/2020 How Much Tobacco Do You Smoke? No [id number] Information not available 03/15/2020 Sex: Unknown Functional Status Question Answer Note LastModified by Physicians Formula Details LastModified Time What is your level of alcohol consumption? None [id number] Information not available 03/15/2020 Do you or have you ever used smokeless tobacco? Never used smokeless tobacco [id number] Information not available 03/15/2020 What is your occupation? Retired [employer] [id number] Information not available 03/15/2020 What is your exercise level? None [id number] Information not available 03/15/2020 Mental Status None recorded. Family History Relationship Description Onset Age of this Age Resolved Age Notes LastModified by Organization Details LastModified Time Paternal Grandmother Myocardial infarction [email or web address] Not available 12/16 10:14:45 Medical History No medical history recorded. Gynecological HistoryNo gynecological history recorded. Obstetrics History GPAL:G 0 P 0 0 0 0 Past Encounters Encounter ID Performer Location Encounter Start Date Encounter Closed Date Diagnosis/Indication Diagnosis SNOMED-CT Code Diagnosis ICD10 Code Diagnosis Note [id number] Mj Hillman MD [facility] [address] [place] [address] 12/16/2018 09:40:53 12/28/2018 22:30:16 Palpitations 04657499 R00.2 holter monitor Atypical chest pain 1025 48046 R07.89 Dobutamine Myoview stress test, pt can not walk. Has known coronary artery disease, with atypical symptoms now Dyslipidemia 506993888 E 78.5 Needs to keep LDL less than 70, and HDL more than 40 Will get lipid profile results from PCP [id number] Mj Hillman MD [facility] [address] [place] [address] 01/30/2019 10:11:00 01/30/2019 11:04:50 Palpitations 57821619 R00.2 still with occasional palpitatio ns but much improved Holter Monitor 01/02/19: Normal sinus rhythm. Unremarkab le holter. 1 episode of VT run. Occasional PVC's and PAC's noted. on metoprolol , will increase to bid Atypical chest pain 1025 35617 R07.89 improved sx. 01/02/19 -[place] te Stress . Normal LV systolic function. LVEF 67%. reversable defect consistent with ischemia to apical and inferior area. artifact noted Dyslipidemia 497937725 E 78.5 Needs to keep LDL less than 70, and HDL more than 40 Will get lipid profile results for F/U. continue statin Essential hypertension 94383738 I10 Not well controlled will increase Toprol to BID Health Concerns Section Related Observation LastModified by Organization Detai ls LastModified Time None Recorded Concern Status LastModified by Organization Details LastModified Time None Recorded Advance Directives Directive None Recorded Payers Insurance Date Sequence Insurance Name Policy Number Policy Santa Covered Member ID Santa Member ID Guarantor Name 11/07/2019 1 [facility] - DOS PRIOR TO 2020 (MEDICAID REPLACEMENT - HMO) Selina Craig [id number] Selina Craig Notes Date Note Type Note Provider Name and Address Organization Details Recorded Time 12/16/2018 text/html 12/16/18CC: ches t pain and palpation 63 year-old female with history of presents for cardiac consultation with a chief complaint of dizziness and palpation.she states that she has chest pain and dizziness with exertionNo shortness of breath at rest. No dyspnea on exertion. No orthopnea. No PND's. No dizziness. No syncope or near syncope. No leg swelling. No nausea and vomiting. No side effects from medications. family history mother of a cancer, and father-COPD Results from this visit, or from the past: Mj Hillman MD [address] [place], [address], [facility] 12/28/2018 22:30:15 01/30/2019 text/html 01/30/2019 CC: dizziness and palpation 63 year-old female with history of: [place] in 2016, former smoker (quit 15 years ago), hypothyroidism, HLD She presented with a chief complaint of dizziness and palpation at her initial visit and presents today for results to diagnostic testing: Holter Monitor 01/02/19: Normal sinus rhythm. Unremarkable holter. 1 episode of VT run. Occasional PVC's and PAC's noted. 01/02/19 -A[facility]ate Stress with Lexiscan. Normal LV systolic function. LVEF 67%. reversable defect consistent with ischemia to apical and inferior area. artifact noted. Blood pressure is elevated today, but this is only one reading, will keep close follow up, and consider medication change if blood pressure is still elevated next visit. She does have a BP machine at home and is advised to keep a dairy and bring to next visit. No shortness of breath at rest. No dyspnea on exertion. No orthopnea. No PND's. No more dizziness. REPORTS palpitations. No syncope or near syncope. trace leg swelling. has varicose veins but denies with them. No nausea and vomiting. No side effects from medications. she has not had any recent lab work with her PCP. will get for next visit Results from this visit, or from the past: EK12/15/18 Left anterior hemiblock. Holter Monitor 01/02/19: Normal sinus rhythm. Unremarkable holter. 1 episode of VT run. Occasional PVC's and PAC's noted. 01/02/19 -Adequate Stress with Lexiscan. Normal LV systolic function. LVEF 67%. reversable defect consistent with ischemia to apical and inferior area. artifact noted Mj Hillman MD [address] [facility], [place], [address], [facility] 01/30/2019 11:04:47 OBGyn Episode No OBEpisode recorded.
--- OUTSIDE RECORDS SUMMARY | 2024-10-27 12:03 | XMS_ITS | Referral Summary ---
Author Organization [facility] Address [address] [place] [id number] Care Team Providers Care Paste Mixer Liquid Name Role Phone Donnie Fernandes MD Primary Care Provider [phone] Allergies Active Allergy Reactions Criticality Noted Date Comments Codeine Swelling,Unknown High 02/26/2017 Hydrocodone-Ibuprofen Nausea And Vomiting Medium 07/15 Ibuprofen Nausea And Vomiting,Unknown Medium 02/27/20 17 Medications bacitracin 500 unit/gram ointment Apply topically 2 (two) times a day 120 g Active Social History Tobacco Use Types Packs/Day Years Used Date Smoking Tobacco: Never Assessed Personal Safety Answer Date Recorded Have you ever been in or are you currently in a harmful physical or emotional relationship or is someone making you feel afraid or unsafe? 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 Gender Identity Not on file Sexual Orientation Not on file Last Filed Vital Signs Vital Sign Reading Time Taken Comments Blood Pressure 160/82 10/15/2023 9:04 PM CDT Pulse 70 10/15/2023 9:04 PM CDT Temperature 36.5 C (97.7 F) 10/15/2023 9:04 PM CDT Respiratory Rate 16 10/15/2023 9:04 PM CDT Oxygen Saturation 98% 10/15/2023 9:04 PM CDT Inhaled Oxygen Concentration - - Weight 120 kg (264 lb 8.8 oz) 10/15/2023 6:01 PM CDT Height - - Body Mass Index - - Plan of Treatment Not on file Insurance MEDICARE [place] [address] [place] [address] MEDICARE Care Teams Paste Mixer Liquid Relationship Specialty Start Date End Date Donnie Fernandes MD PCP - General Emergency Medicine 06/21/22
--- OUTSIDE RECORDS SUMMARY | 2024-10-27 12:03 | XMS_ITS | Clinical Summary ---
Author Organization [facility] Address [address] [facility] [place] [address] Care Team Providers Care Odd Ticket Clerk Name Role Phone Donnie Fernandes MD Primary Care Provider [phone] Source Comments [facility],non-owned Affiliates and Associated Physician Practices is amultiple site organization consisting of ambulatory clinics and hospital sitesin [place], [place], [place] and [place]. This disclosure is being madepursuant to the Care Everywhere program and may not contain all information available regarding this patient. Last updated 18.[facility] Allergies Active Allergy Reactions Criticality Noted Date Comments Codeine Swelling High 07/15/2017 Hydrocodone-Ibuprofen Nausea and/or Vomiting Medium Ibuprofen Nausea and/or Vomiting Medium 07/15/2017 Medications * Be aware that medications may not be up to date on this document. Alwaysverify current medications with the patient. Cyanocobalamin (VITAMIN B 12) 100 MCG Take 500 mg by mouth. 07/15/2017 Active simvastatin (ZOCOR) 40 MG tablet 06/14/2017 Active levothyroxine (SYNTHROID) 88 MCG tablet 06/12/2017 Active Naproxen Sodium 220 MG Take 400 mg by mouth. 07/15/2017 Active losartan (COZAAR) 25 MG tablet 06/12/2017 Active vitamin D, ergocalciferol, (DRISDOL) 61159 UNITS capsule 400 mg. 06/12/2017 Activ e fluticasone propionate (FLONASE) 50 MCG/ACT nasal spray 06/12/2017 Active Active Problems Problem Noted Date Diagnosed Date Pain in left shoulder 07/15/2017 Family History Medical History Relation Name Comments COPD - Chronic Obstructive Pulmonary Disease Father Status: Cancer - Ovarian Mother Status: Dec eased CAD (Coronary Artery Disease) Sister Status: Relation Name Status Comments Father Mother Sister Social History Tobacco Use Types Packs/Day Years Used Date Smoking Tobacco: Former Cigarettes Q uit: 07/15/2001 Smokeless Tobacco: Never Alcohol Use Standard Drinks/Week Comments No 0 (1 standard drink = 0.6 oz pur e alcohol) Comments Unknown Sex and Gender Information Value Date Recorded Sex Assigned at Not on file Legal 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 Gender Identity Not on file Sexual Orientation Not on file Last Filed Vital Signs Vital Sign Reading Time Taken Comments Blood Pressure 183/91 07/15/2017 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 Pulse 73 07/15/2017 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 Temperature 36.6 C (97.9 F) 07/15/2017 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 Respiratory Rate - - Oxygen Saturation 99% 07/15/2017 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 Inhaled Oxygen Concentration - - Weight 115.2 kg (254 lb) 07/15/2017 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 Height 172.7 cm (5' 8) 07/15/2017 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 Body Mass Index 38.62 07/15/2017 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 Plan of Treatment Health Maintenance Due Date Last Done Comments BONE DENSITY TESTING 1954 COLOGUARD (AGES 45-75) - COL ON CA SCREENING 1954 COLON MONITORING 1954 COLONOSCOPY - COLON CA SCREENING 1954 CT COLONOGRAPHY - COLON CA SCREENING 1954 Colorectal Cancer Screening 1954 FIT - COLON CA SCREENING 1954 FLEX SIG - COLON CA SCREENING 1954 MAMMOGRAM 1954 HEPATITIS C SCREENING 12/07/1972 DTAP/TDAP/TD VACCINES (1 - Tdap) 1973 PNEUMOCOCCAL VACCINE 50+ (1 of 1 - PCV) 2004 ZOSTER VACCINE (1 of 2) 2004 COVID-19 VACCINE ( - 2023-2 5 season) 2024 DEPRESSION SCREENING 05/13/2024 INFLUENZA VACCINE (Season Ended) 2025 Respiratory Syncytial Virus (RSV) Vaccine Pt: or over 60 yrs (1 - 1-dose 75+ series) 2029 HEPATITIS B VACCINE Aged Out No longe r eligible based on patient's age to complete this topic HIB VACCINE Aged Out No longer eligi ble based on patient's age to complete this topic HPV VACCINE Aged Out No longer eligi ble based on patient's age to complete this topic MENINGOCOCCAL (Group B) VACC INE SHARED DECISION-MAKING Aged Out No longer eligibl e based on patient's age to complete this topic MENINGOCOCCAL GROUPS A/C/Y/W VACCINE Aged Out No longer eligible b ased on patient's age to complete this topic Insurance MEDICARE Care Teams Odd Ticket Clerk Relationship Specialty Start Date End Date Donnie Fernandes MD [facility] [address] [address] PCP - General 07/15/17
--- OUTSIDE RECORDS SUMMARY | 2024-10-27 12:03 | XMS_ITS | CONTINUITY OF CARE DOCUMENT ---
Author Name dima ch Address Unknown Organization [facility] Address [address] [place] [address] [address] [place] [address] Phone [phone] Care Team Providers Care Front Desk Administrator Name Role Phone Preet Dennis MD Unavailable [phone] TOÑA READ MD Unavailable [phone] TOÑA READ MD Unavailable [phone] INSURANCE PROVIDERS Payer name Policy type / Coverage type [employer] party ID [id number]
--- OUTSIDE RECORDS SUMMARY | 2024-10-27 12:03 | XMS_ITS | Data Portability ---
Author Organization ALEXAND[facility] BURTON Jame Mohamud Castaneda Address [address] [facility] [place] [address] Care Team Providers Care Cancer Program Director Name Role Phone SELINA HOGAN Primary Care Provider [phone] Assessment Encounter Date Assessment Date Assessment LastModified by Organization Details LastModified Time 06/29/2024 06/29/2024 advised f/u with pcp ama Not available 06/29/2024 13:12:49 Plan of Treatment Reminders Order Date Submit Date Provider Last Modified By Organization Details Last Modified Time Details Appointments None recorded. Lab TSH + free T4, serum 2024 025 [facility], [address], [place], [address], 5 12:14:07 cobalamin and folate panel, serum 2024 025 [facility], [address] [facility], [address], [place], [address], 5 12:14:08 vitamin D, 25-hydroxy, total, serum 2024 025 [facility], [address] [facility], [address], [place], [address], 5 12:14:09 CMP, serum or plasma 2024 025 [facility], [address], [address], [place], [address], 5 09:15:43 noninvasive colorectal cancer DNA + occult blood screening, QL, stool 2023 024 [facility] (Cologuard Orders Only), [address], [address], [place], [address], 4 22:43:00 lipid panel, serum 2023 024 [facility], [address], [address], [place], [address], 4 16:13:04 TSH + free T4, serum 2023 024 [facility], [address], [address], [place], [address], 4 16:13:03 T3, free, serum or plasma 2023 024 [facility], [facility] [address], [address], [place], [address], 4 16:13:06 thyroglobul in Ab, serum 2023 024 [facility], [address], [address], [place], [address], 4 16:13:05 thyroid peroxidase (tpo) Ab, serum 2023 024 [facility], [facility], [address], [place], [address], 4 16:13:05 TSH + free T4, serum 2023 024 [facility], [address], [address], [place], [address], 4 08:12:51 CMP, serum or plasma 2023 024 [facility], [address], [address], [place], [address], 4 09:16:45 lipid panel, serum 2023 024 [facility], [address], [address], [place], [address], 4 09:16:44 CBC w/ auto diff 2023 024 [facility], [address], [address], [place], [address], 4 09:16:46 TSH + free T4, serum 2023 024 [facility], [address], [address], [place], [address], 4 09:16:44 HbA1c (hemoglobin A1c), blood 2023 024 [facility], [address], [place], [address], 4 09:16:46 Referral physical therapist referral 2023 024 [facility] (Outpatient Physical Therapy), [address], [place], [address], 4 09:57:03 Procedures None recorded. Surgeries None recorded. Imaging DEXA, axial skeleton + vertebral fracture assessment [address] (Imaging), [address], [place], [address], 5 08:13:12 DEXA, axial skeleton + vertebral fracture assessment [address] (Imaging), [address], [place], [address], 4 09:25:08 Medication Orders lisinopril 40 mg tablet 2024 025 [facility] [place], [address], 5 09:29:32 hydrochloro thiazide 25 mg tablet 2024 025 [facility], [facility] [place], [address], 5 09:29:30 atorvastati n 20 mg tablet 2023 025 [facility], [facility] [place], [address], 5 09:20:57 lisinopril 40 mg tablet 2023 024 [facility], [facility] [place], [address], 4 12:09:38 Patient TargetsNo targets recorded. Patient Instructions Encounter Date Encounter Id Patient Instructions Last Modified By Organization Details Last Modified Time 11/07/2023 [id number] A healthy lifestyle: care instructions [email or web address] Not available 11/07/2023 11:57:09 06/29/2024 [id number] A healthy lifestyle: care instructions [email or web address] Not available 06/29/2024 13:13:28 Reason for Referral Physical Therapist Referral for Pain of right shoulder joint Referring Physician: Selina Hogan, Family Medicine, Encounter Date: 11/07/2023 Results Created Date Observation Date Name Description Value Unit Range Abnormal Flag Note LastModifiedBy Organization Detail LastModifiedTime 11/07/1911/08/2023 TSH+F REE T4 TSH 12.300 uIU/m L 0.450- 4.500 above high normal Not Available [facility] ([facility]) [address] [facility] [address], [place], [address], 11/08/2023 09:16:44 11/07/19 24 11/08/2023 TSH+F REE T4 T4,free(dire ct) 0.74 NG/dL 0.82-1 .77 below low normal Not Available [facility] ([facility]) [address] [place], [address], 11/08/2023 09:16:44 11/07/19 24 11/08/2023 LIPID PANEL WITH LDL/H DL RATIO cholesterol, total 202 mg/dL 100-19 9 above high normal Not Available [facility] ([facility]) [address] [place], [address], 11/08/2023 09:16:44 11/07/19 24 11/08/2023 LIPID PANEL WITH LDL/H DL RATIO triglyceride s 132 mg/dL 0-149 Not Available [facility] ([facility]) [address] [place], [address], 11/08/2023 09:16:44 11/07/19 24 11/08/2023 LIPID PANEL WITH LDL/H DL RATIO HDL cholesterol 43 mg/dL >39 Not Available [facility] ([facility]) [address] [place], [address], 11/08/2023 09:16:44 11/07/19 24 11/08/2023 LIPID PANEL WITH LDL/H DL RATIO VLDL cholesterol juan carlos 24 mg/dL 5-40 Not Available [facility] ([facility]) [address] [place], [address], 11/08/2023 09:16:44 11/07/19 24 11/08/2023 LIPID PANEL WITH LDL/H DL RATIO LDL chol calc ([facility]) 135 mg/dL 0-99 above high normal Not Available [facility] ([facility]) [address] [place], [address], 11/08/2023 09:16:44 11/07/19 24 11/08/2023 LIPID PANEL WITH LDL/H DL RATIO LDL/HDL ratio 3.1 ratio 0.0-3. 2 LDL/H DL Ratio Men Women 1/2 Avg.R isk 1.0 1.5 Avg.R isk 3.6 3.2 2X Avg.R isk 6.2 5.0 3X Avg.R isk 8.0 6.1 Not Available [facility] ([facility]) [address] [place], [address], 11/08/2023 09:16:44 11/07/19 24 11/08/2023 COMP. METAB OLIC PANEL (14) glucose 81 mg/dL 70-99 Not Available [facility] ([facility]) [address] [place], [address], 11/08/2023 09:16:45 11/07/19 24 11/08/2023 COMP. METAB OLIC PANEL (14) BUN 11 mg/dL 8-27 Not Available [facility] ([facility]) [address] [place], [address], 11/08/2023 09:16:45 11/07/19 24 11/08/2023 COMP. METAB OLIC PANEL (14) creatinine 0.94 mg/dL 0.57-1 .00 Not Available [facility] ([facility]) [address] [place], [address], 11/08/2023 09:16:45 11/07/19 24 11/08/2023 COMP. METAB OLIC PANEL (14) eGFR 66 mL/mi n/1.7 3 >59 Not Available [facility] ([facility]) [address] [place], [address], 11/08/2023 09:16:45 11/07/19 24 11/08/2023 COMP. METAB OLIC PANEL (14) BUN/creatini ne ratio 05-09 Not Available [facility] ([facility]) [address] [place], [address], 11/08/2023 09:16:45 11/07/19 24 11/08/2023 COMP. METAB OLIC PANEL (14) sodium 142 mmol/ L 134-14 4 Not Available [facility] ([facility]) [address] [facility] [place], [address], 11/08/2023 09:16:45 11/07/19 24 11/08/2023 COMP. METAB OLIC PANEL (14) potassium 4.3 mmol/ L 3.5-5. 2 Not Available [facility] ([facility]) [address] [facility] [place], [address], 11/08/2023 09:16:45 11/07/19 24 11/08/2023 COMP. METAB OLIC PANEL (14) chloride 106 mmol/ L 96-106 Not Available [facility] ([facility]) [address] [facility] [place], [address], 11/08/2023 09:16:45 11/07/19 24 11/08/2023 COMP. METAB OLIC PANEL (14) carbon dioxide, total 24 mmol/ L 20-29 Not Available [facility] ([facility]) [address] [facility] [place], [address], 11/08/2023 09:16:45 11/07/19 24 11/08/2023 COMP. METAB OLIC PANEL (14) calcium 8.8 mg/dL 8.7-10 .3 Not Available [facility] ([facility]) [address] [facility] [place], [address], 11/08/2023 09:16:45 11/07/19 24 11/08/2023 COMP. METAB OLIC PANEL (14) protein, total 6.8 g/dL 6.0-8. 5 Not Available [facility] ([facility]) [address] [facility] [place], [address], 11/08/2023 09:16:45 11/07/19 24 11/08/2023 COMP. METAB OLIC PANEL (14) albumin 3.7 g/dL 3.9-4. 9 below low normal Not Available [facility] ([facility]) [address] [facility] [place], [address], 11/08/2023 09:16:45 11/07/19 24 11/08/2023 COMP. METAB OLIC PANEL (14) globulin, total 3.1 g/dL 1.5-4. 5 Not Available [facility] ([facility]) [address] [facility] [place], [address], 11/08/2023 09:16:45 11/07/19 24 11/08/2023 COMP. METAB OLIC PANEL (14) bilirubin, total 0.4 mg/dL 0.0-1. 2 Not Available [facility] ([facility]) [address] [facility] [place], [address], 11/08/2023 09:16:45 11/07/19 24 11/08/2023 COMP. METAB OLIC PANEL (14) alkaline phosphatase 66 IU/L 44-121 Not Available [facility] ([facility]) [address] [facility] [place], [address], 11/08/2023 09:16:45 11/07/19 24 11/08/2023 COMP. METAB OLIC PANEL (14) AST (SGOT) 16 IU/L 0-40 Not Available [facility] ([facility]) [address] [facility] [place], [address], 11/08/2023 09:16:45 11/07/19 24 11/08/2023 COMP. METAB OLIC PANEL (14) ALT (SGPT) 10 IU/L 0-32 Not Available [facility] ([facility]) [address] [facility] [place], [address], 11/08/2023 09:16:45 11/07/19 24 11/08/2023 HEMOG LOBIN A1C hemoglobin A1C 5.8 % 4.8-5. 6 above high normal Predi abete s: 5.7 - 6.4 Diabe angelic: >6.4 Glyce kayla contr ol for adult s with diabe angelic: <7.0 Not Available [facility] ([facility]) [address] [place], [address], 11/08/2023 09:16:46 11/07/19 24 11/08/2023 CBC WITH DIFFE RENTI AL/PL ATELE T WBC 5.3 x10e3 /uL 3.4-10 .8 Not Available [facility] ([facility]) [address] [facility], [place], [address], 11/08/2023 09:16:46 11/07/1911/08/2023 CBC WITH DIFFE RENTI AL/PL ATELE T RBC 4.42 x10e6 /uL 3.77-5 .28 Not Available [facility] ([facility]) [address] [place], [address], 11/08/2023 09:16:46 11/07/1911/08/2023 CBC WITH DIFFE RENTI AL/PL ATELE T hemoglobin 13.4 g/dL 11.1-1 5.9 Not Available [facility] ([facility]) [address] [place], [address], 11/08/2023 09:16:46 11/07/1911/08/2023 CBC WITH DIFFE RENTI AL/PL ATELE T hematocrit 40.3 % 34.0-4 6.6 Not Available [facility] ([facility]) [address] [place], [address], 11/08/2023 09:16:46 11/07/1911/08/2023 CBC WITH DIFFE RENTI AL/PL ATELE T MCV 91 fL 79-97 Not Available [facility] ([facility]) [address] [place], [address], 11/08/2023 09:16:46 11/07/1911/08/2023 CBC WITH DIFFE RENTI AL/PL ATELE T MCH 30.3 pg 26.6-3 3.0 Not Available [facility] ([facility]) [address] [facility], [place], [address], 11/08/2023 09:16:46 11/07/19 24 11/08/2023 CBC WITH DIFFE RENTI AL/PL ATELE T MCHC 33.3 g/dL 31.5-3 5.7 Not Available [facility] ([facility]) [address] [facility], [place], [address], 11/08/2023 09:16:46 11/07/19 24 11/08/2023 CBC WITH DIFFE RENTI AL/PL ATELE T RDW 13.0 % 11.7-1 5.4 Not Available [facility] ([facility]) [address] [facility], [place], [address], 11/08/2023 09:16:46 11/07/19 24 11/08/2023 CBC WITH DIFFE RENTI AL/PL ATELE T platelets 310 x10e3 /uL 150-45 0 Not Available [facility] ([facility]) [address] [facility], [place], [address], 11/08/2023 09:16:46 11/07/19 24 11/08/2023 CBC WITH DIFFE RENTI AL/PL ATELE T neutrophils 52 % notest ab. Not Available [facility] ([facility]) [address] [facility], [place], [address], 11/08/2023 09:16:46 11/07/19 24 11/08/2023 CBC WITH DIFFE RENTI AL/PL ATELE T lymphs 34 % notest ab. Not Available [facility] ([facility]) [address] [place], [address], 11/08/2023 09:16:46 11/07/19 24 11/08/2023 CBC WITH DIFFE RENTI AL/PL ATELE T monocytes 11 % notest ab. Not Available [facility] ([facility]) [address] [facility], [place], [address], 11/08/2023 09:16:46 11/07/19 24 11/08/2023 CBC WITH DIFFE RENTI AL/PL ATELE T eos 3 % notest ab. Not Available [facility] ([facility]) [address] [facility], [place], [address], 11/08/2023 09:16:46 11/07/19 24 11/08/2023 CBC WITH DIFFE RENTI AL/PL ATELE T basos 0 % notest ab. Not Available [facility] ([facility]) [address] [facility], [place], [address], 11/08/2023 09:16:46 11/07/19 24 11/08/2023 CBC WITH DIFFE RENTI AL/PL ATELE T neutrophils (absolute) 2.7 x10e3 /uL 1.4-7. 0 Not Available [facility] ([facility]) [address] [facility], [place], [address], 11/08/2023 09:16:46 11/07/19 24 11/08/2023 CBC WITH DIFFE RENTI AL/PL ATELE T lymphs (absolute) 1.8 x10e3 /uL 0.7-3. 1 Not Available [facility] ([facility]) [address] [facility], [place], [address], 11/08/2023 09:16:46 11/07/19 24 11/08/2023 CBC WITH DIFFE RENTI AL/PL ATELE T monocytes(ab solute) 0.6 x10e3 /uL 0.1-0. 9 Not Available [facility] ([facility]) [address] [facility], [place], [address], 11/08/2023 09:16:46 11/07/19 24 11/08/2023 CBC WITH DIFFE RENTI AL/PL ATELE T eos (absolute) 0.2 x10e3 /uL 0.0-0. 4 Not Available [facility] ([facility]) [address] [place], [address], 11/08/2023 09:16:46 11/07/19 24 11/08/2023 CBC WITH DIFFE RENTI AL/PL ATELE T baso (absolute) 0.0 x10e3 /uL 0.0-0. 2 Not Available [facility] ([facility]) [address] [place], [address], 11/08/2023 09:16:46 11/07/1911/08/2023 CBC WITH DIFFE RENTI AL/PL ATELE T immature granulocytes 0 % notest ab. Not Available [facility] ([facility]) [address] [place], [address], 11/08/2023 09:16:46 11/07/19 24 11/08/2023 CBC WITH DIFFE RENTI AL/PL ATELE T immature grans (abs) 0.0 x10e3 /uL 0.0-0. 1 Not Available [facility] ([facility]) [address] [place], [address], 11/08/2023 09:16:46 12/06/1912/08/2023 TSH+F REE T4 TSH 13.700 uIU/m L 0.450- 4.500 above high normal Not Available [facility] ([facility]) [address] [place], [address], 12/08/2023 08:12:51 12/06/1912/08/2023 TSH+F REE T4 T4,free(dire ct) 0.73 NG/dL 0.82-1 .77 below low normal Not Available [facility] ([facility]) [address] [place], [address], 12/08/2023 08:12:51 01/15/2001/16/2024 TSH+F REE T4 TSH 1.320 uIU/m L 0.450- 4.500 Not Available [facility] ([facility]) [address] [place], [address], 01/16/2024 16:13:03 01/15/20 24 01/16/2024 TSH+F REE T4 T4,free(dire ct) 1.30 NG/dL 0.82-1 .77 Not Available [facility] ([facility]) [address] [place], [address], 01/16/2024 16:13:03 01/15/20 24 01/16/2024 LIPID PANEL WITH LDL/H DL RATIO cholesterol, total 182 mg/dL 100-19 9 Not Available [facility] ([facility]) [address] [place], [address], 01/16/2024 16:13:04 01/15/20 24 01/16/2024 LIPID PANEL WITH LDL/H DL RATIO triglyceride s 126 mg/dL 0-149 Not Available [facility] ([facility]) [address] [place], [address], 01/16/2024 16:13:04 01/15/20 24 01/16/2024 LIPID PANEL WITH LDL/H DL RATIO HDL cholesterol 37 mg/dL >39 below low normal Not Available [facility] ([facility]) [address] [place], [address], 01/16/2024 16:13:04 01/15/20 24 01/16/2024 LIPID PANEL WITH LDL/H DL RATIO VLDL cholesterol juan carlos 23 mg/dL 5-40 Not Available [facility] ([facility]) [address] [place], [address], 01/16/2024 16:13:04 01/15/20 24 01/16/2024 LIPID PANEL WITH LDL/H DL RATIO LDL chol calc ([facility]) 122 mg/dL 0-99 above high normal Not Available [facility] ([facility]) [address] [place], [address], 01/16/2024 16:13:04 01/15/20 24 01/16/2024 LIPID PANEL WITH LDL/H DL RATIO LDL/HDL ratio 3.3 ratio 0.0-3. 2 above high normal LDL/H DL Ratio Men Women 1/2 Avg.R isk 1.0 1.5 Avg.R isk 3.6 3.2 2X Avg.R isk 6.2 5.0 3X Avg.R isk 8.0 6.1 Not Available [facility] ([facility]) [address] [place], [address], 01/16/2024 16:13:04 01/15/20 24 01/16/2024 THYRO ID PEROX IDASE (TPO) AB thyroid peroxidase (tpo) Ab 356 IU/mL 0-34 above high normal Not Available [facility] ([facility]) [address] [facility], [place], [address], 01/16/2024 16:13:05 01/15/20 24 01/16/2024 THYRO GLOBU DAMARIS ANTIB NAZANIN thyroglobuli n antibody <1.0 IU/mL 0.0-0. 9 Thyro globu damaris Antib nazanin measu red by Frank madrid [facility] Metho dolog y It shoul d be noted that the prese nce of thyro globu damaris antib odies may not be patho genic nor diagn ostic , espec ially at very low level s. The assay manuf actur er has found that four perce nt of indiv idual s witho ut evide nce of thyro id disea se or autoi mmuni ty will have posit aliyah TgAb level s up to 4 IU/mL . Not Available [facility] ([facility]) [address] [place], [address], 01/16/2024 16:13:05 01/15/20 24 01/16/2024 TRIIO DOTHY ANTONIO E (T3), FREE triiodothyro nine (T3), free 2.6 pg/mL 2.0-4. 4 Not Available [facility] ([facility]) [address] [facility], [place], [address], 01/16/2024 16:13:06 04/03/20 24 04/03/2024 COLOG UARD cologuard result reportable NEGATI VE negati ve normal NEGAT ALIYAH TEST RESUL T. A negat aliyah Colog uard resul t indic ates a low likel ihood that a color ectal cance r (CRC) or advan jitendra adeno ma (genevieve omato us polyp s with more advan jitendra pre-m align ant featu res) is prese nt. The chanc e that a perso n with a negat aliyah Colog uard test has a color ectal cance r is less than 1 in 1500 (nega tive predi ctive value >99.9 %) or has an advan jitendra adeno ma is less than 5.3% (nega tive predi ctive value 94.7% ). These data are based on a prosp ectiv e cross -sect ional study of 10,00 0 indiv idual s at thiells ge risk for color ectal cance r who were scree conrad with both Colog uard and colon oscop y. (Rohan Sierra et al, N Engl J Med 2014; 370(1 4):12 86-12 97) The kristen l value (refe rence range ) for this assay is negat aliyah. COLOG UARD RE-SC CHARLY CORDOVA RECOM MENDA TION: Perio dic color ectal cance r scree donovan is an impor tant part of preve ntive healt hcare for asymp tomat ic indiv idual s at thiells ge risk for color ectal cance r. Follo wing a negat aliyah Colog uard resul t, the Ameri can Cance r Socie ty and U.S. Multi -Soci ety Task Force scree donovan guide lines recom mend a Colog uard re-sc reeni ng inter steve of 3 years . Refer ences : Ameri can Cance r Socie ty Guide line for Color ectal Cance r Scree donovan: https ://ww w.can cer.o rg/ca ncer/ colon -rect al-ca ncer/ detec tion- diagn osis- stagi ng/ac s-rec ommen datio ns.ht ml.; Kendall DK, Josette ramirez CR, Jada stewart JK, Color ectal Cance r Scree donovan: Recom menda tions for Physi cians and Patie nts from the U.S. Multi -Soci ety Task Force on Color ectal Cance r Scree donovan , Hardik May oente rolog y 2017; 112:1 016-1 030. TEST DESCR IPTIO N: [facility] site algor ithmi c bell sis of stool DNA-b ioeduardo krishnan with hemog lobin immun oassa y. Quant itati ve value s of indiv idual bioma rkers are not repor table and are not assoc iated with indiv idual bioma rker resul t refer ence range s. Colog uard is inten ded for color ectal cance r scree donovan of adult s of eithe r sex, 45 years or older , who [facility] for color ectal cance r (CRC) . Colog uard has been appro barry for use by the [place]. FDA. The perfo rmanc e of Colog uard was estab lishe d in a cross secti onal study of [facility] adult s aged 50-84 . Colog uard perfo rmanc e in patie nts ages 45 to 49 years was estim ated by sub-g roup bell sis of near- age group s. Colon oscop ies perfo rmed for a posit aliyah resul t may find as the most clini cindy signi elpidio avalos n: color ectal cance r [4.0% ], advan jitendra adeno ma (incl uding sessi le ramon christian polyp s great er than or equal to 1cm diame ter) [20%] or non- advan jitendra adeno ma [31%] ; or no color ectal neopl eliza [45%] . These estim ates are deriv ed from a prosp ectiv e cross -sect ional scree donovan study of 0 indiv idual s at avera ge risk for color ectal cance r who were scree conrad with both Colog uard and colon oscop y. (Rohan Gee al, N Engl J Med 2014; 370(1 4):12 86-12 97.) Colog uard may produ ce a false negat aliyah or false posit aliyah resul t (no color ectal cance r or preca ncero us polyp prese nt at colon oscop y follo w up). A negat aliyah Colog uard test resul t does not guara ntee the absen ce of CRC or advan jitendra adeno ma (pre- cance r). The curre nt Colog uard scree donovan inter steve is every 3 years . (Amer ican Cance r Socie ty and U.S. Multi -Soci ety Task Force ). Colog uard perfo rmanc e data in a 0 patie nt pivot al study using colon oscop y as the refer ence metho d can be acces sed at the [facility] locat ion: www.e xactl abs.c om/re sults . Addit ional descr iptio n of the Colog uard test proce ss, warni ngs and preca ution s can be found at www.c ologu chito.c om. Not Available [facility] (Cologuard Orders Only) [address], [place], [address], 04/11/2024 22:43:00 06/29/19 25 06/30/2024 COMP. METAB OLIC PANEL (14) glucose 100 mg/dL 70-99 above high normal Not Available [facility] ([facility]) [address] [place], [address], 06/30/2024 09:15:43 06/29/19 25 06/30/2024 COMP. METAB OLIC PANEL (14) BUN 9 mg/dL 8-27 Not Available [facility] ([facility]) [address] [facility], [place], [address], 06/30/2024 09:15:43 06/29/19 25 06/30/2024 COMP. METAB OLIC PANEL (14) creatinine 0.78 mg/dL 0.57-1 .00 Not Available [facility] ([facility]) [address] [facility], [place], [address], 06/30/2024 09:15:43 06/29/19 25 06/30/2024 COMP. METAB OLIC PANEL (14) eGFR 82 mL/mi n/1.7 3 >59 Not Available [facility] ([facility]) [address] [facility] [place], [address], 06/30/2024 09:15:43 06/29/19 25 06/30/2024 COMP. METAB OLIC PANEL (14) BUN/creatini ne ratio 12 12-28 Not Available [facility] ([facility]) [address] [facility], [place], [address], 06/30/2024 09:15:43 06/29/19 25 06/30/2024 COMP. METAB OLIC PANEL (14) sodium 145 mmol/ L 134-14 4 above high normal Not Available [facility] ([facility]) [address] [place], [address], 06/30/2024 09:15:43 06/29/19 25 06/30/2024 COMP. METAB OLIC PANEL (14) potassium 3.8 mmol/ L 3.5-5. 2 Not Available [facility] ([facility]) [address] [place], [address], 06/30/2024 09:15:43 06/29/19 25 06/30/2024 COMP. METAB OLIC PANEL (14) chloride 106 mmol/ L 96-106 Not Available [facility] ([facility]) [address] [place], [address], 06/30/2024 09:15:43 06/29/19 25 06/30/2024 COMP. METAB OLIC PANEL (14) carbon dioxide, total 25 mmol/ L 20-29 Not Available [facility] ([facility]) [address] [facility] [place], [address], 06/30/2024 09:15:43 06/29/19 25 06/30/2024 COMP. METAB OLIC PANEL (14) calcium 8.5 mg/dL 8.7-10 .3 below low normal Not Available [facility] ([facility] [address] [facility] [place], [address], 06/30/2024 09:15:43 06/29/19 25 06/30/2024 COMP. METAB OLIC PANEL (14) protein, total 6.8 g/dL 6.0-8. 5 Not Available [facility] ([facility]) [address] [place], [address], 06/30/2024 09:15:43 06/29/19 25 06/30/2024 COMP. METAB OLIC PANEL (14) albumin 4.0 g/dL 3.9-4. 9 Not Available [facility] ([facility]) [address] [place], [address], 06/30/2024 09:15:43 06/29/19 25 06/30/2024 COMP. METAB OLIC PANEL (14) globulin, total 2.8 g/dL 1.5-4. 5 Not Available [facility] ([facility]) [address] [place], [address], 06/30/2024 09:15:43 06/29/19 25 06/30/2024 COMP. METAB OLIC PANEL (14) bilirubin, total 0.4 mg/dL 0.0-1. 2 Not Available [facility] ([facility]) [address] [place], [address], 06/30/2024 09:15:43 06/29/19 25 06/30/2024 COMP. METAB OLIC PANEL (14) alkaline phosphatase 59 IU/L 44-121 Not Available [facility] ([facility]) [address] [facility] [place], [address], 06/30/2024 09:15:43 06/29/19 25 06/30/2024 COMP. METAB OLIC PANEL (14) AST (SGOT) 15 IU/L 0-40 Not Available [facility] ([facility]) [address] [facility] [place], [address], 06/30/2024 09:15:43 06/29/19 25 06/30/2024 COMP. METAB OLIC PANEL (14) ALT (SGPT) 8 IU/L 0-32 Not Available [facility] ([facility]) [address] [facility] [place], [address], 06/30/2024 09:15:43 07/29/19 25 07/29/2024 TSH+F REE T4 TSH 15.700 uIU/m L 0.450- 4.500 above high normal Not Available [facility] ([facility]) [address] [place], [address], 07/29/2024 12:14:07 07/29/19 25 07/29/2024 TSH+F REE T4 T4,free(dire ct) 0.66 NG/dL 0.82-1 .77 below low normal Not Available [facility] ([facility]) [address] [place], [address], 07/29/2024 12:14:07 07/29/19 25 07/29/2024 VITAM IN B12 AND FOLAT E vitamin B12 150 pg/mL 232-12 45 below low normal Not Available [facility] ([facility]) [address] [place], [address], 07/29/2024 12:14:08 07/29/19 25 07/29/2024 VITAM IN B12 AND FOLAT E folate (folic acid), serum 6.1 NG/mL >3.0 A serum folat e ferdinand ntrat ion of less than 3.1 ng/mL is consi dered to repre sent clini juan carlos defic iency . Not Available [facility] ([facility]) [address] [facility], [place], [address], 07/29/2024 12:14:08 07/29/19 25 07/29/2024 VITAM IN D, 25-HY DROXY vitamin D, 25-hydroxy 10.5 NG/mL 30.0-1 00.0 below low normal Vitam in D defic iency has been defin ed by the Insti tute of Medic ine and an Endoc rine Socie ty pract ice guide line as a level of serum 25-OH vitam in D less than 20 ng/mL (1,2) . The Endoc rine Socie ty went on to furth er defin e vitam in D insuf ficie ncy as a level betwe en 21 and 29 ng/mL (2). 1. IOM (Inst itute of Medic ine). 2009. Dieta ry refer ence intak es for calci um and D. Maggie capone DC: [facility] . 2. Junie peña MF, Ernst talbert [place], Alma off-F nimcoar i CONTE, et al. Evalu ation , treat ment, and preve ntion of vitam in D defic iency : an Endoc rine Socie ty clini juan carlos pract ice guide line. JCEM. 2010; 96(7) :1911 -30. Not Available [facility] ([facility]) [address] [facility], [place], [address], 07/29/2024 12:14:09 Result Notes None recorded. Problems Name Problem SNOMED Code Status Onset Date Resolution Date Notes Provider Name and Address Organization Details Recorded Time Essential hypertensi on 59637857 Active 2023 JR PACHECO Attn: Federico maximiliano,[address], [place], [address], [facility] 12:51:52 Morbid obesity 253337712 Active 2023 JR PACHECO Attn: Federico viera,[address] [facility], [place], [address], [place] - [facility] 4 12:51:53 Hypothyroi dism 13702344 Active 2023 JR PACHECO Attn: Federico viera,[address] [facility], [place], [address], [place] [facility] 4 11:01:22 Screening for malignant neoplasm of colon Active 2023 cologuard negative 03/2024, repeat in 3 yrs JR PACHECO Attn: Federico g,[address] [facility], [place], [address], [place] [facility] 5 09:23:10 Vitamin D deficiency 05481158 Active 2024 JR PACHECO Attn: Federico viera,[address] [facility], [place], [address], [place] [facility] 5 11:23:14 Vitamin B12 deficiency (non anemic) 89617247 Active 2024 JR PACHECO Attn: Federico viera,[address] [facility], [place], [address], [place] [facility] 5 11:23:14 Problem Notes None recorded. Procedures Surgical History Date Name Laterality Status Provider Name and Address Organization Details Recorded Time 05/13/19 total abdominal hysterectomy with bilateral salpingo-oophore ctomy completed JR PACHECO Attn: Accounting,[address] [place], [address], [place] [facility] 11/07/2023 11:59:26 Imaging Results None recorded. Procedure Notes None recorded. Medical Equipment None Reported. Allergies Allergen ID Allergen Name Allergen Category Reaction Reaction Severity Criticality Documentation Date Start Date Code Code System Note Provider Name and Address Organization Details Recorded Time 005205 Motrin medicatio n swelling Not available high 11/07/2023 40230 8 RxNorm RAEANN Lam, [place] - [facility] 4 11:40:10 740588 ibuprofen medicatio n swelling Not available high 11/07/2023 5640 RxNorm Kinsey Gomez MA null, [facility] 11:40:47 Medications Name Sig Start Date Stop Date Status Note LastModified by Organization Details LastModified Time atorvastati n 40 mg tablet TAKE 1 TABLET BY MOUTH ONCE DAILY AT BEDTIME FOR HIGH CHOLESTER OL active Not Available Not Available No t Available atorvastati n 20 mg tablet TAKE 1 TABLET BY MOUTH ONCE DAILY AT BEDTIME FOR HIGH CHOLESTER OL 07/28 completed Not Available Not Available Not Available cyanocobala min (vit B-12) 1,000 mcg tablet Take 1 tablet every day by oral route in the morning for 90 days. 2024 active Not Available Not Available Not Avai lable levothyroxi ne 200 mcg tablet TAKE 1 TABLET BY MOUTH ONCE DAILY BEFORE MEALS active Not Available Not Available No t Available hydrochloro thiazide 25 mg tablet TAKE 1 TABLET BY MOUTH ONCE DAILY DIRECTED active Not Available Not Available No t Available lisinopril 40 mg tablet TAKE 1 TABLET BY MOUTH ONCE DAILY IN THE MORNING FOR HIGH BLOOD PRESSURE FOR 90 DAYS active Not Available Not Available No t Available cholecalcif driss (vitamin D3) 1,250 mcg (50,000 unit) capsule TAKE 1 CAPSULE BY MOUTH ONCE A WEEK WITH MEALS active Not Available Not Available No t Available Vitals Date Recorded Body temperature Provider Name a nd Address Organization Details Last Updated DateTime 06/29/2024 98.1 [degF] Jeannette ENGEL Attn: [place], [address], [place] - [facility] 06/29/2024 12:55:21 Date Recorded Body height Body mass index (BMI) Body weight Heart rate Oxygen saturation Oxygen saturation in Arterial blood by Pulse oximetry Systolic blood pressure Diastolic blood pressure Provider Name and Address Organization Details Last Updated DateTime 172.72 cm 39.7 kg/m2 748723. 61 g 68 /min 98 % 98 % 172 mm[Hg] 91 mm[Hg] Rose Cho MA [place] - [facility] 12:51:11 Date Recorded Systolic blood pressure Diastolic blood pressure Provider Name and Address Organization Details Last Updated DateTime 07/28/2024 170 mm[Hg] 90 mm[Hg] JR PACHECO Attn: Accounting[address] [place], [address], [facility] 07/28/2024 21:03:15 Date Recorded Body height Body mass index (BMI) Body weight Oxygen saturation Oxygen saturation in Arterial blood by Pulse oximetry Heart rate Respiratory rate Systolic blood pressure Diastolic blood pressure Provider Name and Address Organization Details Last Updated DateTime 5 172.72 cm 39.8 kg/m2 662994. 2 g 96 % 96 % 83 /min 18 /min 168 mm[Hg] 89 mm[Hg] Aleah Pena MA [facility] 5 08:55:07 Date Recorded Systolic blood pressure Diastolic blood pressure Provider Name and Address Organization Details Last Updated DateTime 11/07/2023 150 mm[Hg] 100 mm[Hg] JR PACHECO Attn: Accounting[address] [place], [address], [facility] 11/07/2023 12:06:48 Date Recorded Body height Body mass index (BMI) Body weight Oxygen saturation Oxygen saturation in Arterial blood by Pulse oximetry Heart rate Respiratory rate Systolic blood pressure Diastolic blood pressure Provider Name and Address Organization Details Last Updated DateTime 4 172.72 cm 41.7 kg/m2 044881. 71 g 95 % 95 % 84 /min 18 /min 168 mm[Hg] 100 mm[Hg] Kinsey Gomez MA [facility] 4 11:39:23 Date Recorded Systolic blood pressure Diastolic blood pressure Provider Name and Address Organization Details Last Updated DateTime 12/06/2023 160 mm[Hg] 100 mm[Hg] JR PACHECO Attn: Accounting[address] [place], [address], [facility] 12/06/2023 12:16:45 Date Recorded Body height Body mass index (BMI) Body weight Oxygen saturation Oxygen saturation in Arterial blood by Pulse oximetry Heart rate Respiratory rate Systolic blood pressure Diastolic blood pressure Provider Name and Address Organization Details Last Updated DateTime 4 172.72 cm 41.8 kg/m2 076210. 9 g 96 % 96 % 80 /min 16 /min 160 mm[Hg] 100 mm[Hg] Aleah Pena MA [facility] 11:43:13 Date Recorded Systolic blood pressure Diastolic blood pressure Provider Name and Address Organization Details Last Updated DateTime 01/15/2024 116 mm[Hg] 70 mm[Hg] JR PACHECO Attn: Accounting, [place], [address] 01/15/2024 10:31:56 Date Recorded Body height Body mass index (BMI) Body weight Oxygen saturation Oxygen saturation in Arterial blood by Pulse oximetry Heart rate Respiratory rate Systolic blood pressure Diastolic blood pressure Provider Name and Address Organization Details Last Updated DateTime 172.72 cm 41.2 kg/m2 938444. 53 g 99 % 99 % 90 /min 18 /min 144 mm[Hg] 84 mm[Hg] Aleah Pena MA [place] - [facility] 10:11:53 Social History Question Answer Notes LastModified by [employer] Details LastModified Time Tobacco Smoking Status Former Smoker JR PACHECO Attn: Accounting,[address] [place], [address] 11/07/2023 12:01:49 What Was The Date Of Your Most Recent Tobacco Screening? 07/28/2024 Information not available 07/28/2024 At What Age Did You Start Smoking Tobacco? 13 Information not available 11/07/2023 How Much Tobacco Do You Smoke? 1 PPD Information not available 11/07/2023 Has Tobacco Cessation Counseling Been Provided? Yes Information not available 12/06/2023 On What Date Was Tobacco Cessation Counseling Provided? 07/28/2024 [email or web address] Information not available 07/28/2024 Sex: Unknown Functional Status Question Answer Note LastModified by Age of Learningizat [employer] Details LastModified Time Do you use any illicit or recreational drugs? No Information not available 11/07/2023 What is your level of alcohol consumption? None Information not available 11/07/2023 Mental Status None recorded. Family History Relationship Description Onset Age of this Age Resolved Age Notes LastModified by Organization Details LastModified Time Father No current problems or disability [email or web address] Not available 11/06 11:42:00 Mother No current problems or disability [email or web address] Not available 11/06 11:42:00 Medical History Condition Response Coronary Artery Disease N Other N High Blood Pressure Y Atrial Fibrillation N Thyroid Problems N Kidney or Bladder Problems N GI Problems N Depression N COPD N Blood Clots N Skin Problems N Eating Disorder N Anemia N Heart Attack ([place]) N Anxiety Disorder N Diabetes N Muscle, Joint, or Bone Problems N Arthritis N Seizures/Epilepsy N Acid Reflux (GERD) N Cancer N Stroke N Asthma N Allergies N ADHD N Substance Abuse N High Cholesterol N Hepatitis N Liver Disease N Schizophrenia N Headaches N Heart Failure N Osteoporosis N Gynecological History Statement/Question Response If Post Menopausal, Age at Menopause Date of Last Mammogram Obstetrics History GPAL:G 1 P 1 0 0 1 Type Value Full Term 1 Living 1 Total 1 Immunizations Vaccine Type Date Status Note Provider Nam e and Address Organization Details Recorded Time Pneumococcal conjugate PCV20, polysaccharide VDC185 conjugate, adjuvant, PF 4 completed JR PACHECO Attn: Accounting,[address] [place], [address], [facility] 11/07/2023 12:48:53 Past Encounters Encounter ID Performer Location Encounter Start Date Encounter Closed Date Diagnosis/Indication Diagnosis SNOMED-CT Code Diagnosis ICD10 Code Diagnosis Note [id number] Kavin reyes MD [facility] [address] [place] [address] 11/07/2023 11:31:06 11/07/2023 12:13:02 Pain of right shoulder joint 5521747989 5261478 M25.511 fall 10/2023, dislocated shoulder, had procedure at EDc/o R shoulder pain and limited ROM since re-locatio npt is R handedPEx- unable to do SITS testing and FROM R shoulder flexion due to painallerg ic to ibuprofen, pt tolerates naproxen, rec'd to take naproxen with foodrefer to PT Morbid obesity 483238329 E66.01 BMI 41.7discus sed increasing exercise and healthier food options, high protein, low fat dietroutin e labs Screening for malignant neoplasm of breast 414238870 Z12.39 declines screening Screening for malignant neoplasm of cervix 316494611 Z12.4 total hysterecto my 2000 Screening for malignant neoplasm of colon 729581872 Z12.11 did cologuard 2022, negativewi ll retrieve records Postmenopausal state 764 91221 Z78.0 due for DEXA Essential hypertension 43841649 I10 BP 168/100, 150/100asx start lisinopril 40, advised pt of ADRadvised to check BP at home, goal BP <130/80, f/u with BP log in 1 wkf/u in 1 mo Administra tion of pneumococcal vaccine 27652365 Z23 has not had pneumonia vaccine Depression screening 171 Z13.31 PHQ 3 [id number] Kavin reyes MD [facility] [address] [place] [address] 12/06/2023 11:29:11 12/06/2023 12:19:37 Essential hypertension 62133137 I10 12/06/23: takes BP meds at noon, BP today 160/100 x2BP at home 130s/80s 11/07/23: BP 168/100, 150/100asx start lisinopril 40, advised pt of ADRadvised to check BP at home, goal BP <130/80, f/u with BP log in 1 wkf/u in 1 mo Pain of ri ght shoulder joint 1124180578 5846377 M25.511 12/06/23: completed 1 session of PT, f/u after complete PT 11/07/23:fa ll 10/2023, dislocated shoulder, had procedure at EDc/o R shoulder pain and limited ROM since re-locatio npt is R handedPEx- unable to do SITS testing and FROM R shoulder flexion due to painallerg ic to ibuprofen, pt tolerates naproxen, rec'd to take naproxen with foodrefer to PT Postmenopausal state 764 46193 Z78.0 due for DEXAprinte d off referral and encouraged pt to call to schedule appt Depression screening 171 093820 Z13.[address] imulating hormone level above reference range 482937827 R94.6 10/2023: TSH 12.34, T4 0.74re-haley ck today Hyperlipidemia 28833114 E78.5 ASCVD risk 12.5%start ator 20 [id number] Juan Pablo Guallpa MD [facility] [address] [place] [address] 01/15/2024 10:08:18 01/15/2024 10:30:16 Screening for malignant neoplasm of colon 526661020 Z12.11 due for cologuard, last 2019 Hypothyroidism 56759691 E03.9 01/15/24: re-check thyroid levels today 11/2023: TSH 13.7, T4 0.73start levo 200 mcg per weight, re-check in 4-6 wks Essential hypertension 61890023 I10 01/15/24: 144/84, 116/70 todayc/w checking BP at home 12/06/23: takes BP meds at noon, BP today 160/100 x2BP at home 130s/80s 11/07/23: BP 168/100, 150/100asx start lisinopril 40, advised pt of ADRadvised to check BP at home, goal BP <130/80, f/u with BP log in 1 wkf/u in 1 mo Depression screening 171 855330 Z13.31 PHQ 0 Pain of ri ght shoulder joint 1948561846 3078543 M25.511 01/15/24: completed PT, states that her ROM and pain has improvedsh e has been doing HEP 12/06/23: completed 1 session of PT, f/u after complete PT 11/07/23:fa ll 10/2023, dislocated shoulder, had procedure at EDc/o R shoulder pain and limited ROM since re-locatio npt is R handedPEx- unable to do SITS testing and FROM R shoulder flexion due to painallerg ic to ibuprofen, pt tolerates naproxen, rec'd to take naproxen with foodrefer to PT Hyperlipidemia 32015260 E78.5 01/15/24: re-check today : ASCVD risk 12.5%start ator 20 [id number] Juan Pablo Guallpa MD [facility] [address] [place] [address] 06/29/2024 12:41:39 06/29/2024 13:27:28 Essential hypertension 07654580 I10 She did not take medication today or yesterdaya grees to take BP medication todayunder stands risk of [place], Stroke etc Viral syndrome 151933708 B34.9 Selina developed vomiting and diarrhea Saturday06/24/24 w/o blood or mucus. She denies chills, fevers, coughing, congestion , falling, nausea. She has been increasing fluids but has not eaten much in last few days. She feels better today and has not had any more episodes of vomiting or diarrhea. She goes back to work 07/02/2024 and needs note PEX: patient appears relaxed and alert, afebrile. normal exam. discussed BP. - check on status of kidney due to age and possible dehydratio n (GFR 2023 66)- letter provided- ER if unable to hold fluids- f/u prn Morbid obesity 090386922 E66.01 39.710lb weight loss since 01/2024f/u with pcp [id number] Juan Pablo Guallpa MD [facility] [address] [place] [address] 07/28/2024 08:50:48 07/28/2024 09:32:44 Essential hypertension 17644854 I10 07/28/24: BP 169/89, 170/90BP at home 150/s70sc/ w lisinopril 40, HCTZ 25advised to check BP at home, goal BP <120/70, f/u with BP log in 1 wk 01/15/24: 144/84, 116/70 todayc/w checking BP at home 12/06/23: takes BP meds at noon, BP today 160/100 x2BP at home 130s/80s 11/07/23: BP 168/100, 150/100asx start lisinopril 40, advised pt of ADRadvised to check BP at home, goal BP <130/80, f/u with BP log in 1 wkf/u in 1 mo Fatigue 92674853 R53.83 x3 mofeels tired all the timenappin g throughout the daycheck vitamin levels Hypothyroidism 46178075 E03.9 07/28/24: re-check thyroid today 01/15/24: re-check thyroid levels today 11/2023: TSH 13.7, T4 0.73start levo 200 mcg per weight, re-check in 4-6 wks Screening for malignant neoplasm of breast 527764102 Z12.39 declines screening Screening for malignant neoplasm of cervix 475434386 Z12.4 total hysterecto my 2000 Screening for osteoporosis 418555479 Z13.820 due for DEXA Depression screening 171 683064 Z13.31 PHQ 0 Health Concerns Section Related Observation LastModified by Organization Detai ls LastModified Time None Recorded Concern Status LastModified by Organization Details LastModified Time None Recorded Advance Directives Directive None Recorded Payers Insurance Date Sequence Insurance Name Policy Number Policy Santa Covered Member ID Santa Member ID Guarantor Name 07/25/2024 [place] - R[place] - FQHC Selina Craig [id number] Selina Craig 11/07/2023 1 *SELF PAY* Sh tremaine Craig 09/22/2024 2 [place] WHEN MEDICARE OR MEDICARE REPLACEMENT PRIMARY) Selina Craig [id number] Selina Craig 07/25/2024 1 [place] Selina Craig [id number] Selina Craig Notes Date Note Type Note Provider Name and Address Organization Details Recorded Time 11/07/2023 text/html Pt presents to establish care as a new patient. Reports previous PCP diagnosed her with HTN, prescribed medication, and then told pt to stop medication due to controlled blood pressure. Pt fell at work on 10/15/23. 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 States that she tripped over the carpet, slid and fell on her R side. She went to ED due to R shoulder dislocation and had procedure to put R shoulder back in place. C/o R upper arm pain since procedure and unable to lift R arm above her head. She has been applying icy hot w/o relief. Pt is R handed. 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 Denies fever, chills, chest pain, SOB, n/v/d, abd pain, dizziness, weakness, or headaches. JR PACHECO Attn: Accounting[address] [place], [address], [place] [facility] 11/07/2023 12:52:46 12/06/2023 text/html Pt presents for HTN and test result f/u. Reports that she has been taking her BP medication daily and BP at home is 130s/80s. She did not receive appt for DEXA scan. JR PACHECO Attn: Accounting[address] [place], [address], [place] - [facility] 12/06/2023 17:30:33 01/15/2024 text/html Pt presents for 1 mo f/u. Reports that she has been feeling well with starting thyroid medication. She checks BP at home with wrist cuff, 120s-130s/80. JR PACHECO Attn: Accounting[address] [facility], [place], [address], [place] - [facility] 01/15/2024 14:39:53 06/29/2024 text/html Saturday developed vomiting and loose stoold w/o blood or mucus and dizziness. was vomiting every hour. drank water and 7up. she goes back or saturday 96 temp did not najma BP this morning or yesterday. stool is not formed. last episode of vom was yesterday afternoontoday feels better JR ENGEL Attn: Accounting[address] [place], [address], [place] - [facility] 06/29/2024 13:15:01 07/28/2024 text/html Pt presents for HTN f/u and fatigue. C/o fatigue for the past 3 months and feeling tired all the time. Declines depression. Endorses that she has a good appetite. Pt goes to bed between 10-11 PM and wakes up at 730. She reports that she is napping throughout the day which is not normal for her. JR PACHECO Attn: Accounting[address] [place], [address], [place] - [facility] 07/28/2024 21:07:03 OBGyn Episode No OBEpisode recorded.
--- OUTSIDE RECORDS SUMMARY | 2024-10-27 12:04 | XMS_ITS | Clinical Summary ---
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 Gender Identity Not on file Sexual Orientation [...] Mass Index - - Plan of Treatment Health Maintenance Due Date Last Done Comments Breast Cancer Screening-Mammogram 1954 Colon Cancer Screening-Colonoscopy 1954 Depression Screening 1954 Fall Risk Assessment 1954 Hepatitis C Screening 1954 Osteoporosis Screening-Bone Density Scan 1954 Hepatitis B Screening 1972 Pneumococcal vaccine 65+ (1 of 1 - PCV) 2004 Zoster Vaccine (1 of 2) 2004 Well Visit 65+ 12/13/2019 Influenza Vaccine (Season Ended) 2025 04/05/20 21, 01/28/2018 DTaP/Tdap/Td Vaccine (2 - Td or Tdap) 07/27/2026 Insurance MEDICARE IDPA IDND MEDICARE Care Teams Spray Machine Operator Relationship Specialty Start Date End Date Donnie Fernandes MD PCP - General Emergency Medicine 06/21/22
--- NOTE | ~2024-10-28 | DEXA_ITS ---
Bone Density Report Name: TERRENCE RED Age: 68 Sex: Female Ethnicity: White Date of : 1955 Indication: postmenopausal; screening for osteoporosis; Referring Provider: EDISON, PALLAVI Study: Bone densitometry was performed. Exam Date: October 28, 2024 Accession number: [id number] Bone Density: Region BMD T-score Z-score Classification AP Spine(L1-L4) 1.203 1.4 3.5 Normal Femoral Neck (Left) 1.031 1.6 3.4 Normal Total Hip (Left) 1.146 1.7 3.2 Normal Femoral Neck (Right) 0.941 0.8 2.6 Normal Total Hip (Right) 1.113 1.4 2.9 Normal Total Hip Mean 1.129 1.6 3.1 Normal World Health Organization criteria for BMD impression classify patients as: Normal (T-score at or above -1.0), Osteopenia (T-score between -1.0 and -2.5), or Osteoporosis (T-score at or below -2.5). 10-year Fracture Risk: FRAX not reported because: All T-scores for Spine Total, Hip Total, Femoral Neck at or above -1.0 Previous Exams: Region Exam Age BMD T-score BMD Change BMD Change Date g/cm2 vs Baseline vs Previous AP Spine (L1-L4) 10/28/2024 68 1.203 1.4 0.029 (2.4%)* 0.001 (0.1%) 05/15/2019 63 1.203 1.4 0.028 (2.4%)* 0.028 (2.4%)* 05/24/2016 60 1.175 1.2 Total Hip(Left) 10/28/2024 68 1.146 1.7 0.046 (4.2%)* -0.051 (-4.2%) 05/15/2019 63 1.197 2.1 0.097 (8.8%)* 0.097 (8.8%)* 05/24/2016 60 1.100 1.3 Total Hip(Right) 10/28/2024 68 1.113 1.4 0.045 (4.3%)* -0.004 (-0.3%) 05/15/2019 63 1.116 1.4 0.049 (4.6%)* 0.049 (4.6%)* 05/24/2016 60 1.067 1.0 *Denotes significance at 95% confidence level, LSC for AP Spine = 0.022 g/cm2, LSC for Total Hip = 0.027 g/cm2 Clinical Information Provided by Patient: Patient maximum height was 68.0 Menopause Age: 43 No regular weight bearing exercise Does not regularly consume dairy products Drinks caffeinated beverages Onset of menses at age 12 Number of children 1 Impression: The patient has normal bone mass. The BMD for the Total Hip(Left) decreased, changing by -4.2% since the last DXA exam. Discussion: LOW RISK OF FRACTURE; BONE DENSITY IS WELL ABOVE THE MINIMUM DESIRABLE LEVEL AND ABOVE AVERAGE FOR AGE AND SEX AT ALL SKELETAL SITES TESTED. This person's bone density is above expected limits for age and sex. This is rarely clinically significant, but should be pursued if there are significant musculoskeletal complaints. The patient should follow a healthful lifestyle (good nutrition with adequate calcium and vitamin D, and appropriate weight-bearing exercise). Follow-Up: Consider repeating this study in 3 to 4 years to reassess this patient's status, or sooner if there is some new clinical indication. Reported by: THANIA on 10/28/2024 9:05:00 AM. Reviewed, dictated and finalized at location A.
--- OUTSIDE RECORDS SUMMARY | 2024-10-28 08:35 | XMS_ITS | CONTINUITY OF CARE DOCUMENT ---
Author Name dima ch Address Unknown Organization [facility] Address [address] [place] [address] [address] [place] [address] Phone [phone] Care Team Providers Care Bacteriology Technician Name Role Phone Preet Dennis MD Unavailable [phone] TOÑA READ MD Unavailable [phone] TOÑA READ MD Unavailable [phone] INSURANCE PROVIDERS Payer name Policy type / Coverage type Holly red republican ID SELF PAY
--- OUTSIDE RECORDS SUMMARY | 2024-10-28 08:36 | XMS_ITS | Clinical Summary ---
Author Organization 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
--- OUTSIDE RECORDS SUMMARY | 2024-10-28 08:36 | XMS_ITS | Referral Summary ---
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
--- OUTSIDE RECORDS SUMMARY | 2024-10-28 08:36 | XMS_ITS | Clinical Summary ---
Author Organization [facility] Address [address] [facility] [place] [address] Care Team Providers Care Repairer Screen Crusher Name Role Phone Donnie Fernandes MD Primary Care Provider [phone] Source Comments [facility],non-owned Affiliates and Associated Physician Practices is amultiple site organization consisting of ambulatory clinics and hospital sitesin [place], [place] and [place]. This disclosure is being madepursuant to the Care Everywhere program and may not contain all information available regarding this patient. Last updated 18.[facility] Allergies Active Allergy Reactions Criticality Noted Date [...] tablet 06/12/2017 Active vitamin D, ergocalciferol, (DRISDOL) 77028 UNITS capsule 400 mg. 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 Gender Identity Not on file Sexual Orientation Not on file Last Filed Vital Signs Vital Sign Reading Time Taken Comments Blood Pressure 183/91 07/15/2017 12:39 PM NUCLEAR ENGINEERING TECHNICIAN Pulse 73 07/15/2017 12:39 PM NUCLEAR ENGINEERING TECHNICIAN Temperature 36.6 C (97.9 F) 07/15/2017 12:39 PM NUCLEAR ENGINEERING TECHNICIAN Respiratory Rate - - Oxygen Saturation 99% 07/15/2017 12:39 PM NUCLEAR ENGINEERING TECHNICIAN Inhaled Oxygen Concentration - - Weight 115.2 kg (254 lb) 07/15/2017 12:39 PM NUCLEAR ENGINEERING TECHNICIAN Height 172.7 cm (5' 8) 07/15/2017 12:39 PM NUCLEAR ENGINEERING TECHNICIAN Body Mass Index 38.62 07/15/2017 12:39 PM NUCLEAR ENGINEERING TECHNICIAN Plan of Treatment Health Maintenance Due Date [...] complete this topic Insurance MEDICARE Care Teams Repairer Screen Crusher Relationship Specialty Start Date End Date Donnie Fernandes MD [facility] [address] [address] PCP - General 07/15/17
== END 2024-10-28 08:23 | disposition home or self-care (01) ==
PROVIDERS: PCP Physician Assistant; Visit Provider Physician Assistant
DX: M81.0 Age-related osteoporosis without current pathological fracture (principal)
CPT/HCPCS: 77080